=== PATIENT | male | born 1960 | race Caucasian/White ===

== ENCOUNTER 2016-08-31 16:05 | Emergency (ER) | payer OTHER ==
[~2016-08-31] VITALS: Ht 180.3 cm; Wt 88.5 kg
[2016-08-31 16:51] LABS: Basophils # (auto) 0 uL; Basophils % (auto) 0.4 % (0.0-2.0); Lymphocytes # (auto) 2.8 uL; Mean Corpuscular Volume 85.7 fL (80.0-100.0); Mean Platelet Volume 10.1 fL (7.4-10.4); Neutrophils # (auto) 5.1 uL; SUSPECT VIEW TRANSMISSION
[2016-08-31 16:59] LABS: Urine Bilirubin Negative (Negative); Urine Blood Negative /uL (Negative); Urine Color Yellow (Yellow); Urine Glucose Normal (Normal); Urine Ketone Negative (Negative); Urine Nitrite Negative (Negative); Urine RBC <1 /hpf (0 - 3); Urine pH 5.5 (5.0-8.0)
[2016-08-31 17:00] LABS: Eosinophils # (auto) 0.2 uL; Eosinophils % (auto) 2.5 % (0.0-7.0); Hematocrit 47.8 % (41.0-53.0); Lymphocytes % (auto) 31.4 % (10.0-50.0); Mean Corpuscular Hemoglobin 28.8 pg (28.0-32.0); Mean Corpuscular Hgb Conc. 33.6 g/dL (32.0-36.0); Monocytes # (auto) 0.7 uL; Neutrophils % (auto) 57.7 % (37.0-80.0); Platelet Count (auto) 214 10^3/uL (140-450); Red Cell Distribution Width 13.6 % (11.6-16.0); White Blood Cell 8.8 10^3/uL (4.4-10.8)
[2016-08-31 17:12] LABS: Albumin 3.9 g/dL (3.4-5.0); BUN/Creatinine Ratio 14.3; Calcium 8.7 mg/dL (8.5-10.1); Potassium 3.2 mmol/L (3.5-5.1)
[2016-08-31 17:14] LABS: Bilirubin, Total 0.4 mg/dL (0.2-1.0)
[2016-08-31] MEDS ORDERED: MORPHINE SULFATE 4 MG/ML SYRG IV ONE (22:45)
[2016-08-31] MEDS ORDERED: ONDANSETRON HCL 4 MG/2 ML VIAL IV ONE (22:45)
[2016-08-31 23:40] VITALS: BP 102/67
== END 2016-09-01 01:22 | disposition home or self-care (01) ==
LOC: ER 16:11
DX: K58.9 Irritable bowel syndrome, unspecified (principal); R10.31 Right lower quadrant pain; K59.00 Constipation, unspecified; E87.6 Hypokalemia; K21.9 Gastro-esophageal reflux disease without esophagitis; E78.5 Hyperlipidemia, unspecified; I10 Essential (primary) hypertension
CPT/HCPCS: 36415; 74176; 80053; 81001; 82150; 85025; 94761; 96374; 96375; 99285; J2270; J2405

== ENCOUNTER 2022-03-15 12:13 | Emergency (ER) | payer OTHER ==
[~2022-03-15] VITALS: Ht 154.9 cm; Wt 90.0 kg
[~2022-03-15 12:13] MED LIST: CIPR-173 PO; HYDR-4833 PO; LISI-716 PO; METR500T PO; OMEP20TA PO
[2022-03-15 12:54] LABS: Basophils # (auto) 0 10 ^3/uL (0-0.2); Basophils % (auto) 0.4 % (0.0-2.0); Eosinophils # (auto) 0 10 ^3/uL (0-0.8); Eosinophils % (auto) 0.2 % (0.0-7.0); Hemoglobin 16.5 g/dL (13.5-17.5); Lymphocytes % (auto) 12.1 % (10.0-50.0); Mean Corpuscular Hemoglobin 32.1 pg (28.0-32.0); Mean Corpuscular Hgb Conc. 34.4 g/dL (32.0-36.0); Mean Corpuscular Volume 93.4 fL (80.0-100.0); Monocytes # (auto) 0.4 10 ^3/uL (0-1.3); Monocytes % (auto) 5.4 % (0.0-12.0); Neutrophils # (auto) 6.7 10 ^3/uL (1.6-8.6); Neutrophils % (auto) 81.9 % (37.0-80.0); Nucleated Red Blood Cells % 0.1 %; Red Blood Cells 5.14 10^6/uL (4.5-5.90); Red Cell Distribution Width 15.7 % (11.8-14.3); White Blood Cell 8.1 10^3/uL (4.4-10.8)
[2022-03-15] MEDS ORDERED: NITROGLYCERIN 0.4 MG SL TAB SL ONE (13:00)
[2022-03-15 13:09] LABS: Albumin 3.5 g/dL (3.4-5.0); Calcium 8.2 mg/dL (8.5-10.1); Magnesium 1.2 mg/dL (1.6-2.6)
[2022-03-15 13:14] LABS: BUN/Creatinine Ratio 4.5; Total Protein 6.7 g/dL (6.4-8.2)
[2022-03-15] MEDS ORDERED: ONDANSETRON HCL 4 MG/2 ML VIAL IV ONE ×3 (13:15→20:30)
[2022-03-15] MEDS ORDERED: IOHEXOL 350 MG/ML 100ML IJ ONE (13:15)
[2022-03-15] MEDS ORDERED: HYDROmorphone HCL 2 MG/ML VL/or syr IV ONE (13:15)
[2022-03-15] MEDS ORDERED: LABETALOL HCL 5 MG/ML 4ML SYRINGE IV ONE (13:15)
[2022-03-15] MEDS ORDERED: MORPHINE SULFATE INJ 2 MG/ml SYRG IM ONE (17:45)
[2022-03-15] MEDS ORDERED: MORPHINE SULFATE INJ 2 MG/ml SYRG IV ONE (18:00)
[2022-03-15 18:25] LABS: Urine Bacteria NONE SEEN /hpf (None Seen); Urine Blood Negative /uL (Negative); Urine Mucus FEW (None Seen); Urine WBC <1 /hpf (0 - 3)
[2022-03-15 18:30] LABS: Urine Specific Gravity > 1.050 (1.001-1.035)
[2022-03-15] MEDS ORDERED: MORPHINE SULFATE 4 MG/ML SYR/VIAL IV ONE (20:30)
[2022-03-15 20:32] VITALS: BP 166/82
== END 2022-03-15 20:36 | disposition short-term general hospital (02) ==
LOC: ER 12:13
DX: K80.80 Other cholelithiasis without obstruction (principal); R07.89 Other chest pain; R74.01 Elevation of levels of liver transaminase levels; I10 Essential (primary) hypertension; E78.5 Hyperlipidemia, unspecified; Z90.49 Acquired absence of other specified parts of digestive tract
CPT/HCPCS: 36415; 71045; 71260; 74177; 76705; 80053; 81001; 83735; 84484; 85025; 93005; 96374; 96375; 96376; 99285; J1170; J2270; J2405; J3490; Q9967

== ENCOUNTER 2022-05-09 08:40 | Emergency (ER) | payer OTHER ==
[~2022-05-09] VITALS: Ht 180.3 cm; Wt 86.5 kg
[2022-05-09] MEDS ORDERED: PANTOPRAZOLE 40 MG/10 ML VIAL INJ IV ONE (09:00)
[2022-05-09] MEDS ORDERED: ONDANSETRON HCL 4 MG/2 ML VIAL IV ONE ×2 (09:00→17:45)
[2022-05-09] MEDS ORDERED: MORPHINE SULFATE 4 MG/ML SYR/VIAL IV ONE ×2 (09:00→17:45)
[2022-05-09 09:18] LABS: Basophils # (auto) 0.1 10 ^3/uL (0-0.2); Basophils % (auto) 0.8 % (0.0-2.0); Eosinophils # (auto) 0.1 10 ^3/uL (0-0.8); Eosinophils % (auto) 1.4 % (0.0-7.0); Hematocrit 48.2 % (41.0-53.0); Hemoglobin 17.1 g/dL (13.5-17.5); Lymphocytes # (auto) 2.4 10 ^3/uL (0.4-5.4); Mean Corpuscular Hgb Conc. 35.4 g/dL (32.0-36.0); Monocytes # (auto) 0.7 10 ^3/uL (0-1.3); Monocytes % (auto) 6.5 % (0.0-12.0); Neutrophils # (auto) 7.1 10 ^3/uL (1.6-8.6); Neutrophils % (auto) 68.3 % (37.0-80.0); Nucleated Red Blood Cells % 0.1 %; Red Blood Cells 5.02 10^6/uL (4.5-5.90); Red Cell Distribution Width 14.9 % (11.8-14.3); White Blood Cell 10.4 10^3/uL (4.4-10.8)
[2022-05-09 09:27] LABS: Albumin 3.6 g/dL (3.4-5.0); Anion Gap 13 (5-15); BUN/Creatinine Ratio 4.2; Blood Urea Nitrogen 4 mg/dL (7-18); Calcium 8.8 mg/dL (8.5-10.1); Carbon Dioxide 23 mmol/L (21-32); Chloride 101 mmol/L (98-107); GFR African American 102 mL/min; GFR Non-African American 84 mL/min; Glucose 126 mg/dL (74-106); Lipase 117 U/L (73-393); Magnesium 1.4 mg/dL (1.6-2.6); Potassium 3.4 mmol/L (3.5-5.1); Sodium 137 mmol/L (136-145)
[2022-05-09 09:35] LABS: INR 1.02 (0.9-1.15); Partial Thromboplastin Time 26.4 sec (24.6-33.4)
[2022-05-09 09:38] LABS: Alanine Aminotransferase 56 U/L (16-61); Alkaline Phosphatase 91 U/L (45-117); Aspartate Aminotransferase 70 U/L (15-37); Bilirubin, Total 1.5 mg/dL (0.2-1.0); Total Protein 7.4 g/dL (6.4-8.2)
[2022-05-09] MEDS ORDERED: ONDANSETRON HCL 4 MG/2 ML VIAL IV PRN (14:45)
[2022-05-09] MEDS ORDERED: ACETAMINOPHEN 325 MG TAB PO PRN (14:45)
[2022-05-09] MEDS ORDERED: HYDROcodone-ACET 5/325MG TAB PO PRN (14:45)
[2022-05-09] MEDS ORDERED: DOCUSATE SOD 100 MG CAP PO PRN (14:45)
[2022-05-09] MEDS ORDERED: SODIUM CHLORIDE 0.9% 1,000 ML IV SCH (14:45)
[2022-05-09] MEDS ORDERED: POTASSIUM EFFERVESENT TAB 25 MEQ PO ONE (14:45)
[2022-05-09] MEDS ORDERED: ASPirin 325 MG TAB PO ONE (14:45)
[2022-05-09 15:35] LABS: Cholesterol 149 mg/dL (< 200); HDL Cholesterol 44 mg/dL (40-59); LDL Cholesterol 89 mg/dL (< 100); Triglycerides 118 mg/dL (< 150)
[2022-05-09 22:33] VITALS: BP 188/90
[2022-05-09] MEDS ORDERED: LABETALOL HCL 5 MG/ML 4ML SYRINGE IV ONE (22:45)
[2022-05-10] MEDS ORDERED: ASPirin 81 mg TAB PO SCH (10:00)
[2022-05-10] MEDS ORDERED: PANTOPRAZOLE 40 MG/10 ML VIAL INJ IV SCH (10:00)
[2022-05-10] MEDS ORDERED: ENOXAPARIN SOD 40 MG/0.4 ML SYRINGE SC SCH (10:00)
== END 2022-05-09 23:45 | disposition short-term general hospital (02) ==
LOC: ER 08:40 → TELE 14:43 → UNDOADMIN 14:43 → UNDODISIN 23:45
DX: K83.8 Other specified diseases of biliary tract (principal); I10 Essential (primary) hypertension; K21.9 Gastro-esophageal reflux disease without esophagitis; K80.20 Calculus of gallbladder without cholecystitis without obstruction; F17.210 Nicotine dependence, cigarettes, uncomplicated; Z90.49 Acquired absence of other specified parts of digestive tract; Z20.822 Contact with and (suspected) exposure to COVID-19
CPT/HCPCS: 36415; 71045; 74176; 74181; 80053; 80061; 83036; 83690; 83735; 83880; 84132; 84443; 84484; 85025; 85379; 85610; 85730; 87426; 93005; 96374; 96375; 96376; 99285; C9113; J2270; J2405; J3490; G0378

== ENCOUNTER 2023-02-06 09:53 | Emergency (ER) | payer OTHER ==
[~2023-02-06] VITALS: Ht 180.3 cm; Wt 88.2 kg
[~2023-02-06 09:53] MED LIST changes: +AMLO1TAB23 PO; -LISI-716 PO; +LISI10TA34 PO; +METO25TA93 PO; +OMEP1CAP70 PO; +SUCR1SUS26 PO
[2023-02-06 10:53] LABS: Basophils # (auto) 0.1 10 ^3/uL (0-0.2); Basophils % (auto) 0.6 % (0.0-2.0); Eosinophils # (auto) 0.1 10 ^3/uL (0-0.8); Eosinophils % (auto) 1.4 % (0.0-7.0); Hematocrit 48.4 % (41.0-53.0); Hemoglobin 16.7 g/dL (13.5-17.5); Lymphocytes # (auto) 2.6 10 ^3/uL (0.4-5.4); Lymphocytes % (auto) 24.2 % (10.0-50.0); Mean Corpuscular Hemoglobin 33.3 pg (28.0-32.0); Mean Corpuscular Hgb Conc. 34.4 g/dL (32.0-36.0); Mean Corpuscular Volume 96.7 fL (80.0-100.0); Monocytes # (auto) 0.6 10 ^3/uL (0-1.3); Monocytes % (auto) 5.7 % (0.0-12.0); Neutrophils # (auto) 7.3 10 ^3/uL (1.6-8.6); Neutrophils % (auto) 68.1 % (37.0-80.0); Nucleated Red Blood Cells % 0.2 %; Red Blood Cells 5.01 10^6/uL (4.5-5.90); White Blood Cell 10.7 10^3/uL (4.4-10.8)
[2023-02-06 11:11] LABS: Albumin 3.1 g/dL (3.4-5.0); Calcium 9.1 mg/dL (8.5-10.1)
[2023-02-06 11:15] LABS: BUN/Creatinine Ratio 5.2 (10.0-20.0); Bilirubin, Total 1.4 mg/dL (0.2-1.0); Total Protein 7.7 g/dL (6.4-8.2)
[2023-02-06 11:17] LABS: Potassium 2.8 mmol/L (3.5-5.1)
[2023-02-06] MEDS ORDERED: POTASSIUM CHL 20 Meq TABLET PO ONE (11:30)
[2023-02-06 12:58] VITALS: BP 96/67; PULSE 65; RESP 16; TEMP 97.6; O2SAT 95
== END 2023-02-06 12:59 | disposition home or self-care (01) ==
LOC: ER 09:53
DX: K29.70 Gastritis, unspecified, without bleeding (principal); E87.6 Hypokalemia; K21.9 Gastro-esophageal reflux disease without esophagitis; I10 Essential (primary) hypertension; E78.5 Hyperlipidemia, unspecified; F17.210 Nicotine dependence, cigarettes, uncomplicated; Z90.49 Acquired absence of other specified parts of digestive tract; Z79.899 Other long term (current) drug therapy; Z90.89 Acquired absence of other organs
CPT/HCPCS: 36415; 76705; 80053; 83690; 85025; 93005

== ENCOUNTER 2023-06-08 21:43 | Inpatient (IN) | payer OTHER ==
[~2023-06-08] VITALS: Ht 180.3 cm; Wt 81.2 kg
[~2023-06-08 21:43] MED LIST changes: +ALBUAER3 IN; +BUDE1AER4 IN; +DILT-102 PO; +DOXY-448 PO; +FLE50T PO; +FURO1TAB33 PO; +POTA8TAB38 PO; +VANC125PO PO
[2023-06-08] MEDS ORDERED: ACETAMINOPHEN 325 MG TAB PO ONE (22:45)
[2023-06-08] MEDS ORDERED: ASPirin 81 mg TAB PO ONE (22:45)
[2023-06-08 23:16] LABS: Basophils # (auto) 0.1 10 ^3/uL (0-0.2); Lymphocytes # (auto) 3.1 10 ^3/uL (0.4-5.4)
[2023-06-08 23:17] LABS: Basophils % (auto) 0.8 % (0.0-2.0); Eosinophils # (auto) 0 10 ^3/uL (0-0.8); Eosinophils % (auto) 0.4 % (0.0-7.0); Hematocrit 37.3 % (41.0-53.0); Hemoglobin 12.7 g/dL (13.5-17.5); Lymphocytes % (auto) 27.6 % (10.0-50.0); Mean Corpuscular Hemoglobin 37.1 pg (28.0-32.0); Mean Corpuscular Hgb Conc. 34.1 g/dL (32.0-36.0); Mean Corpuscular Volume 108.8 fL (80.0-100.0); Monocytes # (auto) 0.9 10 ^3/uL (0-1.3); Monocytes % (auto) 8.3 % (0.0-12.0); Neutrophils % (auto) 62.9 % (37.0-80.0); Red Blood Cells 3.43 10^6/uL (4.5-5.90); White Blood Cell 11.2 10^3/uL (4.4-10.8)
[2023-06-08 23:31] LABS: Alanine Aminotransferase 44 U/L (7-40); Albumin 3.9 g/dL (3.2-4.8); Alkaline Phosphatase 94 U/L (46-116); Anion Gap 12 (5-15); Aspartate Aminotransferase 41 U/L (13-40); BUN/Creatinine Ratio 4.9 (10.0-20.0); Bilirubin, Total 0.9 mg/dL (0.2-1.0); Blood Alcohol 268.5 mg/dL (<10); Blood Urea Nitrogen < 5 mg/dL (9-23); Calcium 8.6 mg/dL (8.7-10.4); Carbon Dioxide 28 mmol/L (20-30); Chloride 93 mmol/L (98-107); Glucose 128 mg/dL (74-106); Magnesium 1.5 mg/dL (1.6-2.6); Potassium 2.7 mmol/L (3.5-5.1); Sodium 133 mmol/L (136-145); Total Protein 6.6 g/dL (5.7-8.2)
[2023-06-08 23:33] LABS: INR 1.04 (0.9-1.15); Partial Thromboplastin Time 26.9 SEC (24.5-34.5); Prothrombin Time 10.9 sec (9.3-11.8)
[2023-06-08 23:56] LABS: Lactic Acid w/Reflex 4.9 mmol/L (0.4-2.0)
[2023-06-09 01:21] LABS: Urine Bacteria NONE SEEN /hpf (None Seen); Urine Blood Negative /uL (Negative); Urine Clarity Clear (Clear); Urine Color Colorless (Yellow); Urine Protein, UAD Negative (Negative); Urine Specific Gravity 1.004 (1.001-1.035); Urine Urobilinogen Normal (Negative); Urine WBC 1 /hpf (0 - 3)
[2023-06-09 01:31] LABS: Amphetamine Screen, Urine Neg (NEGATIVE); Barbiturate Scree,Urine Neg (NEGATIVE); Benzodiazephine Screen, Urine Neg (NEGATIVE); Cannabinoid Screen, Urine Neg (NEGATIVE); Cocaine Screen, Urine Neg (NEGATIVE); Opiate Scree,Urine Neg (NEGATIVE); Phencyclidine Screen, Urine Neg (NEGATIVE)
[2023-06-09] MEDS ORDERED: SODIUM CHLORIDE 0.9% 1,000 ML IV ONE ×2 (01:45→07:30)
[2023-06-09] MEDS ORDERED: VANCOMYCIN 1GM/250ML 250 ML IV SCH ×2 (03:15→10:00)
[2023-06-09] MEDS: PIPERACILLIN-TAZOB 3.375GM 100 ML IV SCH ×4 (06:32→23:40)
[2023-06-09 07:14] LABS: Lactic Acid w/Reflex 4.1 mmol/L (0.4-2.0)
[2023-06-09] MEDS ORDERED: ACETAMINOPHEN 325 MG TAB PO PRN (07:30)
[2023-06-09] MEDS ORDERED: POTASSIUM CHL 20 Meq TABLET PO ONE (07:30)
[2023-06-09] MEDS ORDERED: cefTRIAXone 1GM/50ML D5W 50 ML IV SCH (09:00)
[2023-06-09] MEDS: dilTIAZem HCL 180MG ER CAP PO SCH (09:49)
[2023-06-09] MEDS: MAGNESIUM SULFATE 1GM/100ML 100 ML IV SCH ×2 (09:49→11:07)
[2023-06-09] MEDS: ENOXAPARIN SOD 40 MG/0.4 ML SYRINGE SC SCH (09:49)
[2023-06-09] MEDS: ASPirin 81 mg TAB PO SCH (09:50)
[2023-06-09] MEDS ORDERED: FUROSEMIDE 40 MG TAB PO SCH (10:00)
[2023-06-09] MEDS: VANCOMYCIN HCL 125MG/5ML ORAL SOL PO SCH ×3 (12:12→21:35)
[2023-06-09 14:39] LABS: Alanine Aminotransferase 38 U/L (7-40); Albumin 3.6 g/dL (3.2-4.8); Alkaline Phosphatase 94 U/L (46-116); Anion Gap 7 (5-15); Aspartate Aminotransferase 43 U/L (13-40); Bilirubin, Total 1.4 mg/dL (0.2-1.0); Calcium 8.1 mg/dL (8.7-10.4); Carbon Dioxide 27 mmol/L (20-30); Chloride 100 mmol/L (98-107); Glucose 115 mg/dL (74-106); Magnesium 2.1 mg/dL (1.6-2.6); Potassium 3.3 mmol/L (3.5-5.1); Sodium 134 mmol/L (136-145)
[2023-06-09 14:52] LABS: BUN/Creatinine Ratio 6.1 (10.0-20.0); Blood Urea Nitrogen < 5 mg/dL (9-23)
[2023-06-09 15:19] LABS: Basophils # (auto) 0.1 10 ^3/uL (0-0.2); Eosinophils # (auto) 0 10 ^3/uL (0-0.8); Eosinophils % (auto) 0.3 % (0.0-7.0); Hemoglobin 12.2 g/dL (13.5-17.5); White Blood Cell 10.2 10^3/uL (4.4-10.8)
[2023-06-09 15:21] LABS: Basophils % (auto) 1.3 % (0.0-2.0); Hematocrit 35.3 % (41.0-53.0); Lymphocytes # (auto) 1.4 10 ^3/uL (0.4-5.4); Lymphocytes % (auto) 13.3 % (10.0-50.0); Mean Corpuscular Hemoglobin 37.4 pg (28.0-32.0); Mean Corpuscular Hgb Conc. 34.5 g/dL (32.0-36.0); Mean Corpuscular Volume 108.3 fL (80.0-100.0); Monocytes % (auto) 9.4 % (0.0-12.0); Neutrophils # (auto) 7.7 10 ^3/uL (1.6-8.6); Neutrophils % (auto) 75.7 % (37.0-80.0); Nucleated Red Blood Cells % 0.1 %; Red Blood Cells 3.26 10^6/uL (4.5-5.90); Red Cell Distribution Width 18.6 % (11.8-14.3)
[2023-06-09] MEDS: ONDANSETRON HCL 4 MG/2 ML VIAL IV PRN (16:18)
[2023-06-09 23:27] VITALS: BP 112/75; PULSE 95; TEMP 97.9
[2023-06-09 23:28] VITALS: BP 136/83; PULSE 105; RESP 20; TEMP 98.1; O2SAT 97
[2023-06-10] MEDS: ONDANSETRON HCL 4 MG/2 ML VIAL IV PRN (04:36)
[2023-06-10 05:00] VITALS: BP 129/90; PULSE 101; RESP 18; TEMP 98.6; O2SAT 95
[2023-06-10] MEDS: PIPERACILLIN-TAZOB 3.375GM 100 ML IV SCH (05:58)
[2023-06-10] MEDS: VANCOMYCIN HCL 125MG/5ML ORAL SOL PO SCH ×4 (05:58→21:20)
[2023-06-10 07:11] LABS: Alanine Aminotransferase 31 U/L (7-40); Albumin 3.5 g/dL (3.2-4.8); Alkaline Phosphatase 95 U/L (46-116); Anion Gap 7 (5-15); Aspartate Aminotransferase 30 U/L (13-40); BUN/Creatinine Ratio 6.7 (10.0-20.0); Blood Urea Nitrogen 6 mg/dL (9-23); Calcium 8.5 mg/dL (8.7-10.4); Carbon Dioxide 30 mmol/L (20-30); Chloride 98 mmol/L (98-107); Glucose 86 mg/dL (74-106); Potassium 3.1 mmol/L (3.5-5.1); Sodium 135 mmol/L (136-145)
[2023-06-10 07:12] LABS: Bilirubin, Total 1.1 mg/dL (0.2-1.0); Total Protein 5.9 g/dL (5.7-8.2)
[2023-06-10 07:21] LABS: Basophils # (auto) 0 10 ^3/uL (0-0.2); Basophils % (auto) 0.6 % (0.0-2.0); Eosinophils # (auto) 0.1 10 ^3/uL (0-0.8); Hemoglobin 11.4 g/dL (13.5-17.5); Lymphocytes # (auto) 1.6 10 ^3/uL (0.4-5.4); Neutrophils # (auto) 4.5 10 ^3/uL (1.6-8.6); Nucleated Red Blood Cells % 0.2 %; White Blood Cell 6.9 10^3/uL (4.4-10.8)
[2023-06-10 07:27] LABS: Eosinophils % (auto) 1.3 % (0.0-7.0); Hematocrit 33.6 % (41.0-53.0); Lymphocytes % (auto) 23.1 % (10.0-50.0); Mean Corpuscular Hemoglobin 37.3 pg (28.0-32.0); Mean Corpuscular Volume 109.5 fL (80.0-100.0); Monocytes # (auto) 0.7 10 ^3/uL (0-1.3); Monocytes % (auto) 9.4 % (0.0-12.0); Neutrophils % (auto) 65.6 % (37.0-80.0); Red Blood Cells 3.07 10^6/uL (4.5-5.90); Red Cell Distribution Width 19.1 % (11.8-14.3)
[2023-06-10 08:00] VITALS: PULSE 105
[2023-06-10 09:17] VITALS: BP 128/88; PULSE 118; RESP 22; TEMP 97.7; O2SAT 95
[2023-06-10] MEDS ORDERED: POTASSIUM CHL 20 Meq TABLET PO ONE (09:30)
[2023-06-10] MEDS ORDERED: PANTOPRAZOLE 40 MG TAB PO ONE (10:15)
[2023-06-10] MEDS: ENOXAPARIN SOD 40 MG/0.4 ML SYRINGE SC SCH (10:43)
[2023-06-10] MEDS: dilTIAZem HCL 180MG ER CAP PO SCH (10:44)
[2023-06-10] MEDS: ASPirin 81 mg TAB PO SCH (10:44)
[2023-06-10 13:29] VITALS: BP 129/45; PULSE 116; RESP 21; TEMP 97.6; O2SAT 94
[2023-06-10] MEDS: chlorproMAZINE HCL 25 MG TAB PO PRN (14:45)
[2023-06-10 20:00] VITALS: PULSE 97
[2023-06-10] MEDS: FLECAINIDE ACETATE 50 MG TAB PO SCH (21:21)
[2023-06-10] MEDS: ATORVASTATIN 20 MG TAB PO SCH (21:21)
[2023-06-10 22:00] VITALS: BP 106/64; PULSE 92; RESP 19; TEMP 98.6; O2SAT 96
[2023-06-11 05:00] VITALS: BP 117/72; PULSE 98; RESP 19; TEMP 97.8; O2SAT 93
[2023-06-11] MEDS: VANCOMYCIN HCL 125MG/5ML ORAL SOL PO SCH ×4 (05:08→21:39)
[2023-06-11 06:08] LABS: Basophils # (auto) 0 10 ^3/uL (0-0.2); Eosinophils # (auto) 0.1 10 ^3/uL (0-0.8); Hemoglobin 11.2 g/dL (13.5-17.5); Lymphocytes # (auto) 1.9 10 ^3/uL (0.4-5.4); Mean Corpuscular Hgb Conc. 34.2 g/dL (32.0-36.0); Monocytes # (auto) 0.5 10 ^3/uL (0-1.3); Nucleated Red Blood Cells % 0.1 %
[2023-06-11 06:10] LABS: Basophils % (auto) 0.6 % (0.0-2.0); Eosinophils % (auto) 1.3 % (0.0-7.0); Hematocrit 32.8 % (41.0-53.0); Lymphocytes % (auto) 29.1 % (10.0-50.0); Mean Corpuscular Hemoglobin 37.2 pg (28.0-32.0); Mean Corpuscular Volume 108.9 fL (80.0-100.0); Monocytes % (auto) 8.1 % (0.0-12.0); Neutrophils # (auto) 3.9 10 ^3/uL (1.6-8.6); Neutrophils % (auto) 60.9 % (37.0-80.0); Red Blood Cells 3.01 10^6/uL (4.5-5.90); Red Cell Distribution Width 19.2 % (11.8-14.3); White Blood Cell 6.5 10^3/uL (4.4-10.8)
[2023-06-11 06:28] LABS: Alanine Aminotransferase 28 U/L (7-40); Albumin 3.4 g/dL (3.2-4.8); Alkaline Phosphatase 97 U/L (46-116); Anion Gap 8 (5-15); Aspartate Aminotransferase 36 U/L (13-40); BUN/Creatinine Ratio 7.1 (10.0-20.0); Blood Urea Nitrogen 6 mg/dL (9-23); Calcium 8.6 mg/dL (8.7-10.4); Carbon Dioxide 30 mmol/L (20-30); Chloride 100 mmol/L (98-107); Glucose 88 mg/dL (74-106); Magnesium 1.9 mg/dL (1.6-2.6); Potassium 3.1 mmol/L (3.5-5.1); Sodium 138 mmol/L (136-145)
[2023-06-11 06:29] LABS: Bilirubin, Total 0.6 mg/dL (0.2-1.0); Total Protein 5.7 g/dL (5.7-8.2)
[2023-06-11 08:00] VITALS: PULSE 105
[2023-06-11] MEDS ORDERED: POTASSIUM CHL 20 Meq TABLET PO ONE (08:15)
[2023-06-11] MEDS: ENOXAPARIN SOD 40 MG/0.4 ML SYRINGE SC SCH (08:43)
[2023-06-11] MEDS: PANTOPRAZOLE 40 MG TAB PO SCH (08:44)
[2023-06-11] MEDS: FLECAINIDE ACETATE 50 MG TAB PO SCH (08:44)
[2023-06-11] MEDS: ASPirin 81 mg TAB PO SCH (08:44)
[2023-06-11] MEDS: dilTIAZem HCL 180MG ER CAP PO SCH (08:45)
[2023-06-11 09:59] VITALS: BP 126/78; PULSE 103; RESP 21; TEMP 98.2; O2SAT 96
[2023-06-11 12:52] VITALS: BP 125/73; PULSE 92; RESP 19; TEMP 98.2; O2SAT 97
[2023-06-11 20:00] VITALS: BP 111/80; PULSE 107; PULSE 108; RESP 18; TEMP 98.2
[2023-06-11] MEDS: ATORVASTATIN 20 MG TAB PO SCH (21:37)
[2023-06-11 22:00] VITALS: BP 111/80; PULSE 108; RESP 18; O2SAT 94
[2023-06-12] VITALS (7 sets, daily range): BP systolic 107–137; BP diastolic 64–99; PULSE 78–105; RESP 17–18; TEMP 97.5–98.1; O2SAT 91–98
[2023-06-12] MEDS: FLECAINIDE ACETATE 50 MG TAB PO SCH ×3 (02:02→21:10)
[2023-06-12 05:51] LABS: Chloride 101 mmol/L (98-107); Potassium 3.6 mmol/L (3.5-5.1); Sodium 135 mmol/L (136-145)
[2023-06-12 05:52] LABS: Anion Gap 6 (5-15); Calcium 8.7 mg/dL (8.7-10.4); Carbon Dioxide 28 mmol/L (20-30)
[2023-06-12 05:57] LABS: Glucose 94 mg/dL (74-106)
[2023-06-12 06:25] LABS: BUN/Creatinine Ratio 4.8 (10.0-20.0); Blood Urea Nitrogen < 5 mg/dL (9-23)
[2023-06-12] MEDS: VANCOMYCIN HCL 125MG/5ML ORAL SOL PO SCH ×4 (06:33→21:12)
[2023-06-12] MEDS: ENOXAPARIN SOD 40 MG/0.4 ML SYRINGE SC SCH (09:30)
[2023-06-12] MEDS: dilTIAZem HCL 180MG ER CAP PO SCH (09:31)
[2023-06-12] MEDS: PANTOPRAZOLE 40 MG TAB PO SCH (09:31)
[2023-06-12] MEDS: ASPirin 81 mg TAB PO SCH (09:31)
[2023-06-12] MEDS: chlorproMAZINE HCL 25 MG TAB PO PRN (17:27)
[2023-06-12] MEDS: ATORVASTATIN 20 MG TAB PO SCH (21:10)
[2023-06-13 05:00] VITALS: BP 131/85; PULSE 86; RESP 18; TEMP 97.8; O2SAT 94
[2023-06-13] MEDS: VANCOMYCIN HCL 125MG/5ML ORAL SOL PO SCH ×2 (05:20→11:08)
[2023-06-13 05:54] LABS: Chloride 103 mmol/L (98-107); Potassium 3.9 mmol/L (3.5-5.1); Sodium 139 mmol/L (136-145)
[2023-06-13 05:55] LABS: Anion Gap 9 (5-15); Calcium 9.4 mg/dL (8.5-10.1); Carbon Dioxide 27 mmol/L (20-30)
[2023-06-13 06:00] LABS: BUN/Creatinine Ratio 7.4 (10.0-20.0); Blood Urea Nitrogen 8 mg/dL (9-23); Glucose 99 mg/dL (74-106)
[2023-06-13 08:00] VITALS: PULSE 99
[2023-06-13 09:00] VITALS: BP 144/87; PULSE 106; RESP 19; TEMP 98.3; O2SAT 95
[2023-06-13] MEDS: ENOXAPARIN SOD 40 MG/0.4 ML SYRINGE SC SCH (11:05)
[2023-06-13] MEDS: FLECAINIDE ACETATE 50 MG TAB PO SCH (11:05)
[2023-06-13] MEDS: ASPirin 81 mg TAB PO SCH (11:05)
[2023-06-13] MEDS: PANTOPRAZOLE 40 MG TAB PO SCH (11:05)
[2023-06-13] MEDS: dilTIAZem HCL 180MG ER CAP PO SCH (11:05)
[2023-06-13] MEDS ORDERED: VANC125C3 PO (11:52)
[2023-06-13] MEDS ORDERED: CHLO1TAB37 PO (11:54)
== END 2023-06-13 15:10 | disposition home or self-care (01) | DRG 248 ==
LOC: EDBD 21:43 → ER 21:43 → EDUNIT# 06-09 07:28 → OVERFLOW 06-09 07:28 → CENTRAL 06-09 22:16 → TELE-CENTR 06-10 19:37
PROVIDERS: ADMIT Nurse Practitioner; ATTEND Internal Medicine Geriatric Medicine
DX: A04.71 Enterocolitis due to Clostridium difficile, recurrent (principal); N17.9 Acute kidney failure, unspecified; E87.8 Other disorders of electrolyte and fluid balance, not elsewhere classified; F10.10 Alcohol abuse, uncomplicated; I48.91 Unspecified atrial fibrillation; E66.9 Obesity, unspecified; E87.6 Hypokalemia; J44.9 Chronic obstructive pulmonary disease, unspecified; I10 Essential (primary) hypertension; Z68.25 Body mass index [BMI] 25.0-25.9, adult; Z72.0 Tobacco use
CPT/HCPCS: 36415; 71045; 80048; 80053; 80307; 80320; 81001; 82553; 83605; 83735; 83880; 84443; 84484; 85007; 85025; 85027; 85379; 85610; 85730; 86850; 86900; 86901; 87040; 87493; 93005; G0378; J0696; J2405; J2543; Q0161

== ENCOUNTER 2024-01-03 11:34 | Inpatient (IN) | payer MEDICARE, OTHER ==
[~2024-01-03] VITALS: Ht 182.9 cm; Wt 89.0 kg
[~2024-01-03 11:34] MED LIST changes: +CHLO1TAB37 PO; -DOXY-448 PO; +VANC125C3 PO; -VANC125PO PO
[2024-01-03 11:41] VITALS: PULSE 120; RESP 12; O2SAT 97
[2024-01-03 12:08] LABS: Basophils # (auto) 0.1 10 ^3/uL (0-0.2); Eosinophils # (auto) 0.3 10 ^3/uL (0-0.8); Lymphocytes # (auto) 1.4 10 ^3/uL (0.4-5.4); Lymphocytes % (auto) 15.1 % (10.0-50.0); Monocytes # (auto) 0.7 10 ^3/uL (0-1.3); Nucleated Red Blood Cells % 0.1 %
[2024-01-03 12:10] LABS: Basophils % (auto) 0.6 % (0.0-2.0); Eosinophils % (auto) 3.2 % (0.0-7.0); Hematocrit 41.1 % (41.0-53.0); Hemoglobin 14.9 g/dL (13.5-17.5); Mean Corpuscular Hemoglobin 35.5 pg (28.0-32.0); Mean Corpuscular Hgb Conc. 36.3 g/dL (32.0-36.0); Mean Corpuscular Volume 97.7 fL (80.0-100.0); Monocytes % (auto) 7.4 % (0.0-12.0); Neutrophils # (auto) 6.8 10 ^3/uL (1.6-8.6); Neutrophils % (auto) 73.7 % (37.0-80.0); Red Blood Cells 4.21 10^6/uL (4.5-5.90); Red Cell Distribution Width 15.3 % (11.8-14.3); White Blood Cell 9.2 10^3/uL (4.4-10.8)
[2024-01-03 12:22] LABS: INR 1.22 (0.9-1.15); Partial Thromboplastin Time 27.7 SEC (24.5-34.5); Prothrombin Time 12.7 sec (9.3-11.8)
[2024-01-03 12:28] LABS: Alanine Aminotransferase 24 U/L (7-40); Albumin 3.7 g/dL (3.2-4.8); Alkaline Phosphatase 67 U/L (46-116); Anion Gap 13 (5-15); Aspartate Aminotransferase 74 U/L (13-40); BUN/Creatinine Ratio 8.5 (10.0-20.0); Blood Urea Nitrogen 12 mg/dL (9-23); Calcium 6.5 mg/dL (8.5-10.1); Carbon Dioxide 32 mmol/L (20-30); Chloride 92 mmol/L (98-107); Glucose 104 mg/dL (74-106); Sodium 137 mmol/L (136-145)
[2024-01-03 12:29] LABS: Bilirubin, Total 1.7 mg/dL (0.2-1.0)
[2024-01-03 13:00] LABS: Lactic Acid w/Reflex 5.2 mmol/L (0.4-2.0); Potassium 1.7 mmol/L (3.5-5.1)
[2024-01-03] MEDS: PIPERACILLIN-TAZOB 3.375GM 100 ML IV ONE (14:31)
[2024-01-03] MEDS: SODIUM CHLORIDE 0.9% 250 ML IV ONE (14:31)
[2024-01-03] MEDS: POTASSIUM CHL 20MEQ/100ML 100 ML IV SCH ×2 (15:38→21:11)
[2024-01-03] MEDS: POTASSIUM EFFERVESENT TAB 25 MEQ PO ONE (15:38)
[2024-01-03 17:25] LABS: Urine Bacteria FEW /hpf (None Seen); Urine Blood 2+ /uL (Negative); Urine Clarity Clear (Clear); Urine Color Light-Yellow (Yellow); Urine Protein, UAD Negative (Negative); Urine Specific Gravity 1.005 (1.001-1.035); Urine Urobilinogen Normal (Negative); Urine WBC 1 /hpf (0 - 3)
[2024-01-03 17:29] LABS: Amphetamine Screen, Urine Neg (NEGATIVE); Barbiturate Scree,Urine Neg (NEGATIVE); Benzodiazephine Screen, Urine Neg (NEGATIVE); Cannabinoid Screen, Urine Neg (NEGATIVE); Cocaine Screen, Urine Neg (NEGATIVE); Opiate Scree,Urine Neg (NEGATIVE); Phencyclidine Screen, Urine Neg (NEGATIVE)
[2024-01-03] MEDS ORDERED: ACETAMINOPHEN 325 MG TAB PO PRN ×2 (17:30→17:45)
[2024-01-03] MEDS ORDERED: NITROGLYCERIN 0.4 MG SL TAB SL PRN ×2 (17:30→17:45)
[2024-01-03] MEDS ORDERED: MORPHINE SULFATE INJ 2 MG/ml SYRG IV PRN ×2 (17:30→17:45)
[2024-01-03] MEDS ORDERED: HYDROcodone-ACET 5/325MG TAB PO PRN (17:30)
[2024-01-03] MEDS ORDERED: chlorproMAZINE HCL 25 MG TAB PO PRN (17:30)
[2024-01-03 19:30] VITALS: PULSE 96; RESP 16; O2SAT 97
[2024-01-03 21:53] VITALS: PULSE 69; RESP 18; O2SAT 98
[2024-01-03] MEDS ORDERED: FLECAINIDE ACETATE 50 MG TAB PO SCH (22:00)
[2024-01-03] MEDS: FLECAINIDE ACETATE 50 MG TAB PO SCH (22:39)
[2024-01-04] VITALS (7 sets, daily range): BP systolic 105–136; BP diastolic 53–73; PULSE 65–89; RESP 17–20; TEMP 97.2–98.6; O2SAT 97–100
[2024-01-04] MEDS ORDERED: DAPA1TAB4 PO (01:05)
[2024-01-04] MEDS ORDERED: [UNRECOGNIZED DRUG - CODE] PO (01:05)
[2024-01-04] MEDS ORDERED: SACU1TAB7 PO (01:05)
[2024-01-04] MEDS: HYDROcodone-ACET 5/325MG TAB PO PRN (01:41)
[2024-01-04] MEDS: FAMOTIDINE (10MG/ML) 2ML VL IV ONE (01:54)
[2024-01-04] MEDS: POTASSIUM CHL 20MEQ/100ML 100 ML IV SCH (03:19)
[2024-01-04] MEDS: POTASSIUM CHL 20 Meq TABLET PO ONE ×2 (04:12→22:15)
[2024-01-04 05:49] LABS: Basophils # (auto) 0 10 ^3/uL (0-0.2); Eosinophils # (auto) 0.3 10 ^3/uL (0-0.8); Mean Corpuscular Hemoglobin 35.3 pg (28.0-32.0); Monocytes # (auto) 0.5 10 ^3/uL (0-1.3); Neutrophils # (auto) 4.7 10 ^3/uL (1.6-8.6); Nucleated Red Blood Cells % 0.3 %
[2024-01-04 05:54] LABS: Basophils % (auto) 0.6 % (0.0-2.0); Eosinophils % (auto) 4.7 % (0.0-7.0); Hematocrit 36.1 % (41.0-53.0); Lymphocytes # (auto) 1.6 10 ^3/uL (0.4-5.4); Lymphocytes % (auto) 22.3 % (10.0-50.0); Neutrophils % (auto) 65.4 % (37.0-80.0); Red Blood Cells 3.68 10^6/uL (4.5-5.90); Red Cell Distribution Width 15.3 % (11.8-14.3); White Blood Cell 7.1 10^3/uL (4.4-10.8)
[2024-01-04 06:09] LABS: Alanine Aminotransferase 19 U/L (7-40); Alkaline Phosphatase 57 U/L (46-116); Anion Gap 9 (5-15); Aspartate Aminotransferase 63 U/L (13-40); BUN/Creatinine Ratio 6.5 (10.0-20.0); Bilirubin, Total 1.3 mg/dL (0.2-1.0); Blood Urea Nitrogen 7 mg/dL (9-23); Calcium 6.1 mg/dL (8.5-10.1); Carbon Dioxide 32 mmol/L (20-30); Chloride 99 mmol/L (98-107); Glucose 88 mg/dL (74-106); Sodium 140 mmol/L (136-145); Total Protein 5.5 g/dL (5.7-8.2)
[2024-01-04 06:12] LABS: Albumin 3.3 g/dL (3.2-4.8)
[2024-01-04 06:29] LABS: Potassium 1.5 mmol/L (3.5-5.1)
[2024-01-04] MEDS: PANTOPRAZOLE 40 MG/10 ML VIAL INJ IV ONE (09:00)
[2024-01-04] MEDS: POTASSIUM CHLORIDE 20 MEQ, LIDOCAINE 1% (LOCAL ANESTH.) 2 ML in SODIUM CHL 0.9% 100 ML IV ONE (09:28)
[2024-01-04] MEDS: SUCRALFATE 1 GM/10 ML ORAL SUSP PO SCH (09:28)
[2024-01-04] MEDS: LISINOPRIL 5 MG TAB PO SCH (09:29)
[2024-01-04] MEDS: amLODIPine BESYLATE 5 MG TAB PO SCH (09:29)
[2024-01-04] MEDS: PANTOPRAZOLE 40 MG TAB PO SCH (09:30)
[2024-01-04] MEDS: POTASSIUM CHLORIDE 8 MEQ TAB PO SCH (09:31)
[2024-01-04] MEDS: PANTOPRAZOLE 40 MG/10 ML VIAL INJ IV SCH (09:31)
[2024-01-04] MEDS: ENOXAPARIN SOD 40 MG/0.4 ML SYRINGE SC SCH (09:34)
[2024-01-04] MEDS ORDERED: SUCRALFATE 1 GM/10 ML ORAL SUSP PO SCH (10:00)
[2024-01-04] MEDS ORDERED: POTASSIUM CHLORIDE 8 MEQ TAB PO SCH (10:00)
[2024-01-04] MEDS ORDERED: PATIENTS OWN MEDICATION (Lisinopril 10 MG) PO SCH (10:00)
[2024-01-04] MEDS ORDERED: PATIENTS OWN MEDICATION (Amlodipine Besylate 1 TAB) PO SCH (10:00)
[2024-01-04] MEDS ORDERED: ENOXAPARIN SOD 40 MG/0.4 ML SYRINGE SC SCH (10:00)
[2024-01-04] MEDS ORDERED: PATIENTS OWN MEDICATION (Omeprazole (Omeprazole Dr) 1 CAP) PO SCH (10:00)
[2024-01-04] MEDS ORDERED: dilTIAZem HCL 180MG ER CAP PO SCH (10:00)
[2024-01-04] MEDS ORDERED: METO1TAB77 PO (11:22)
[2024-01-04] MEDS ORDERED: BACL10TA PO (11:22)
[2024-01-04] MEDS: MAGNESIUM SULFATE 1GM/100ML 100 ML IV SCH (11:43)
[2024-01-04] MEDS: SOD CHL 0.9%/ KCL 40MEQ 1,000 ML IV SCH (11:44)
[2024-01-04] MEDS: POTASSIUM CHLORIDE 60 MEQ, LIDOCAINE 1% (LOCAL ANESTH.) 6 ML in SODIUM CHL 0.9% 500 ML IV ONE (12:28)
[2024-01-04 14:37] LABS: Chloride 100 mmol/L (98-107); Sodium 142 mmol/L (136-145)
[2024-01-04 14:41] LABS: Calcium 6.1 mg/dL (8.5-10.1)
[2024-01-04 14:46] LABS: BUN/Creatinine Ratio 6.9 (10.0-20.0); Blood Urea Nitrogen 7 mg/dL (9-23); Glucose 112 mg/dL (74-106)
[2024-01-04 14:57] LABS: Potassium 1.7 mmol/L (3.5-5.1)
[2024-01-04 15:38] LABS: Anion Gap 8 (5-15); Carbon Dioxide 34 mmol/L (20-30)
[2024-01-04 20:35] LABS: Chloride 102 mmol/L (98-107); Sodium 143 mmol/L (136-145)
[2024-01-04 20:36] LABS: Anion Gap 9 (5-15); Carbon Dioxide 32 mmol/L (20-30)
[2024-01-04 20:37] LABS: Calcium 6.2 mg/dL (8.5-10.1)
[2024-01-04 20:42] LABS: BUN/Creatinine Ratio 5.9 (10.0-20.0); Blood Urea Nitrogen 6 mg/dL (9-23); Glucose 116 mg/dL (74-106)
[2024-01-04] MEDS: POTASSIUM CHL 20 Meq TABLET PO NR (22:51)
[2024-01-05] VITALS (8 sets, daily range): BP systolic 125–145; BP diastolic 62–84; PULSE 77–101; RESP 18–20; TEMP 97.7–98.1; O2SAT 90–98
[2024-01-05 00:54] LABS: Chloride 103 mmol/L (98-107); Sodium 140 mmol/L (136-145)
[2024-01-05 00:55] LABS: Anion Gap 7 (5-15); Carbon Dioxide 30 mmol/L (20-30)
[2024-01-05 00:56] LABS: Calcium 6.3 mg/dL (8.7-10.4)
[2024-01-05 01:00] LABS: BUN/Creatinine Ratio 6.5 (10.0-20.0); Blood Urea Nitrogen 6 mg/dL (9-23); Glucose 107 mg/dL (74-106)
[2024-01-05 01:04] LABS: Potassium 2.1 mmol/L (3.5-5.1)
[2024-01-05] MEDS: POTASSIUM CHL 20 Meq TABLET PO ONE (02:45)
[2024-01-05] MEDS: POTASSIUM CHL 20 Meq TABLET PO SCH (03:40)
[2024-01-05 07:32] LABS: Basophils # (auto) 0 10 ^3/uL (0-0.2); Eosinophils # (auto) 0.3 10 ^3/uL (0-0.8); Eosinophils % (auto) 3.2 % (0.0-7.0); Hemoglobin 14.2 g/dL (13.5-17.5); Monocytes # (auto) 0.5 10 ^3/uL (0-1.3); Monocytes % (auto) 5.9 % (0.0-12.0); White Blood Cell 8.1 10^3/uL (4.4-10.8)
[2024-01-05 07:34] LABS: Basophils % (auto) 0.5 % (0.0-2.0); Hematocrit 40.3 % (41.0-53.0); Lymphocytes # (auto) 1.3 10 ^3/uL (0.4-5.4); Mean Corpuscular Hemoglobin 35.1 pg (28.0-32.0); Mean Corpuscular Hgb Conc. 35.2 g/dL (32.0-36.0); Mean Corpuscular Volume 99.9 fL (80.0-100.0); Neutrophils % (auto) 74.4 % (37.0-80.0); Red Blood Cells 4.03 10^6/uL (4.5-5.90); Red Cell Distribution Width 15.6 % (11.8-14.3)
[2024-01-05 07:52] LABS: Alanine Aminotransferase 21 U/L (7-40); Albumin 3.5 g/dL (3.2-4.8); Alkaline Phosphatase 61 U/L (46-116); Anion Gap 8 (5-15); Aspartate Aminotransferase 74 U/L (13-40); Calcium 6.1 mg/dL (8.5-10.1); Carbon Dioxide 29 mmol/L (20-30); Chloride 104 mmol/L (98-107); Glucose 104 mg/dL (74-106); Magnesium 1.5 mg/dL (1.6-2.6); Sodium 141 mmol/L (136-145); Total Protein 5.9 g/dL (5.7-8.2)
[2024-01-05 07:59] LABS: BUN/Creatinine Ratio 5.6 (10.0-20.0); Blood Urea Nitrogen < 5 mg/dL (9-23)
[2024-01-05 08:01] LABS: Potassium 2.4 mmol/L (3.5-5.1)
[2024-01-05] MEDS ORDERED: POTASSIUM EFFERVESENT TAB 25 MEQ GT SCH (10:00)
[2024-01-05] MEDS: MAGNESIUM SULFATE 1GM/100ML 100 ML IV SCH (10:48)
[2024-01-05] MEDS: CALCIUM GLUC 1,000mg/50ml-NS 50 ML IV ONE (12:41)
[2024-01-05] MEDS: POTASSIUM CHL 20MEQ/100ML 100 ML IV SCH (14:53)
[2024-01-05] MEDS: chlorproMAZINE HCL 25 MG TAB PO PRN (15:42)
[2024-01-05] MEDS: VANCOMYCIN HCL 125 MG CAP PO ONE (16:45)
[2024-01-05] MEDS: BACLOFEN 10 MG TAB PO ONE (16:46)
[2024-01-05] MEDS: VANCOMYCIN HCL 125 MG CAP PO SCH (18:43)
[2024-01-05 19:50] LABS: Chloride 103 mmol/L (98-107); Sodium 140 mmol/L (136-145)
[2024-01-05 19:51] LABS: Anion Gap 8 (5-15); Calcium 6.3 mg/dL (8.5-10.1); Carbon Dioxide 29 mmol/L (20-30)
[2024-01-05 19:56] LABS: Glucose 119 mg/dL (74-106)
[2024-01-05 20:00] LABS: Blood Urea Nitrogen < 5 mg/dL (9-23)
[2024-01-05] MEDS: BACLOFEN 10 MG TAB PO SCH (21:35)
[2024-01-05] MEDS ORDERED: POTASSIUM EFFERVESENT TAB 25 MEQ PO ONE (22:15)
[2024-01-05] MEDS: POTASSIUM EFFERVESENT TAB 25 MEQ PO SCH (22:39)
[2024-01-06] VITALS (8 sets, daily range): BP systolic 117–138; BP diastolic 63–91; PULSE 84–104; RESP 18–19; TEMP 97.2–98.3; O2SAT 92–99
[2024-01-06 05:56] LABS: Anion Gap 6 (5-15); Carbon Dioxide 29 mmol/L (20-30); Chloride 103 mmol/L (98-107); Potassium 2.6 mmol/L (3.5-5.1); Sodium 138 mmol/L (136-145)
[2024-01-06 05:57] LABS: Calcium 6.6 mg/dL (8.7-10.4)
[2024-01-06 06:02] LABS: Glucose 116 mg/dL (74-106)
[2024-01-06 06:31] LABS: Blood Urea Nitrogen < 5 mg/dL (9-23)
[2024-01-06 07:08] LABS: Basophils # (auto) 0 10 ^3/uL (0-0.2); Basophils % (auto) 0.3 % (0.0-2.0); Eosinophils # (auto) 0.1 10 ^3/uL (0-0.8); Eosinophils % (auto) 1.8 % (0.0-7.0); Hematocrit 37.7 % (41.0-53.0); Hemoglobin 13.1 g/dL (13.5-17.5); Lymphocytes % (auto) 13.3 % (10.0-50.0); Mean Corpuscular Hemoglobin 35.5 pg (28.0-32.0); Mean Corpuscular Hgb Conc. 34.8 g/dL (32.0-36.0); Monocytes # (auto) 0.4 10 ^3/uL (0-1.3); Monocytes % (auto) 5.8 % (0.0-12.0); Neutrophils # (auto) 5.7 10 ^3/uL (1.6-8.6); Neutrophils % (auto) 78.8 % (37.0-80.0); Nucleated Red Blood Cells % 0.3 %; Red Cell Distribution Width 15.6 % (11.8-14.3); White Blood Cell 7.3 10^3/uL (4.4-10.8)
[2024-01-06] MEDS: POTASSIUM CHL 20MEQ/100ML 0 ML IV ONE (08:12)
[2024-01-06] MEDS: POTASSIUM CHL 20MEQ/100ML 100 ML IV SCH (09:42)
[2024-01-06] MEDS: MAGNESIUM SULFATE 1GM/100ML 100 ML IV SCH (09:44)
[2024-01-06] MEDS: metroNIDAZOLE 500MG/100ML 100 ML IV ONE (11:12)
[2024-01-06] MEDS: metroNIDAZOLE 500MG/100ML 100 ML IV SCH (14:58)
[2024-01-06] MEDS: POTASSIUM EFFERVESENT TAB 25 MEQ PO SCH (14:58)
[2024-01-07] VITALS (8 sets, daily range): BP systolic 97–120; BP diastolic 65–76; PULSE 79–94; RESP 16–20; TEMP 97.3–98.2; O2SAT 91–100
[2024-01-07 07:28] LABS: Basophils # (auto) 0 10 ^3/uL (0-0.2); Basophils % (auto) 0.5 % (0.0-2.0); Eosinophils # (auto) 0.1 10 ^3/uL (0-0.8); Eosinophils % (auto) 1.8 % (0.0-7.0); Hematocrit 33.4 % (41.0-53.0); Hemoglobin 11.7 g/dL (13.5-17.5); Lymphocytes # (auto) 1.1 10 ^3/uL (0.4-5.4); Lymphocytes % (auto) 20.2 % (10.0-50.0); Mean Corpuscular Hemoglobin 35.4 pg (28.0-32.0); Mean Corpuscular Volume 101.1 fL (80.0-100.0); Monocytes # (auto) 0.4 10 ^3/uL (0-1.3); Monocytes % (auto) 7.5 % (0.0-12.0); Neutrophils # (auto) 3.9 10 ^3/uL (1.6-8.6); Nucleated Red Blood Cells % 0.1 %; Red Cell Distribution Width 15.1 % (11.8-14.3); White Blood Cell 5.6 10^3/uL (4.4-10.8)
[2024-01-07 07:40] LABS: Chloride 103 mmol/L (98-107); Potassium 3.4 mmol/L (3.5-5.1); Sodium 140 mmol/L (136-145)
[2024-01-07 07:41] LABS: Anion Gap 6 (5-15); Calcium 6.3 mg/dL (8.5-10.1); Carbon Dioxide 31 mmol/L (20-30)
[2024-01-07 07:46] LABS: Glucose 111 mg/dL (74-106)
[2024-01-07 07:47] LABS: Magnesium 1.3 mg/dL (1.6-2.6)
[2024-01-07 07:53] LABS: BUN/Creatinine Ratio 6.1 (10.0-20.0); Blood Urea Nitrogen < 5 mg/dL (9-23)
[2024-01-07] MEDS: POTASSIUM CHL 20MEQ/100ML 100 ML IV SCH (08:34)
[2024-01-07] MEDS: MAGNESIUM SULFATE 1GM/100ML 100 ML IV SCH (08:36)
[2024-01-07] MEDS: CALCIUM GLUC 1,000mg/50ml-NS 50 ML IV SCH (14:57)
[2024-01-07 16:36] LABS: Calcium 6.8 mg/dL (8.5-10.1); Chloride 105 mmol/L (98-107); Sodium 140 mmol/L (136-145)
[2024-01-07 16:37] LABS: Anion Gap 5 (5-15); Carbon Dioxide 30 mmol/L (20-30)
[2024-01-07 16:42] LABS: Glucose 101 mg/dL (74-106)
[2024-01-07 16:43] LABS: BUN/Creatinine Ratio 6.5 (10.0-20.0); Blood Urea Nitrogen < 5 mg/dL (9-23)
[2024-01-07 18:19] LABS: Basophils # (auto) 0 10 ^3/uL (0-0.2); Eosinophils # (auto) 0.1 10 ^3/uL (0-0.8); Eosinophils % (auto) 2.3 % (0.0-7.0); Hematocrit 34.7 % (41.0-53.0); Hemoglobin 11.9 g/dL (13.5-17.5); Lymphocytes # (auto) 1.2 10 ^3/uL (0.4-5.4); Mean Corpuscular Hemoglobin 34.5 pg (28.0-32.0); Monocytes # (auto) 0.4 10 ^3/uL (0-1.3); Nucleated Red Blood Cells % 0.1 %
[2024-01-07 18:21] LABS: Basophils % (auto) 0.7 % (0.0-2.0); Lymphocytes % (auto) 20.6 % (10.0-50.0); Mean Corpuscular Hgb Conc. 34.4 g/dL (32.0-36.0); Mean Corpuscular Volume 100.3 fL (80.0-100.0); Monocytes % (auto) 6.3 % (0.0-12.0); Neutrophils # (auto) 4.2 10 ^3/uL (1.6-8.6); Neutrophils % (auto) 70.1 % (37.0-80.0); Red Blood Cells 3.46 10^6/uL (4.5-5.90); Red Cell Distribution Width 15.1 % (11.8-14.3); White Blood Cell 5.9 10^3/uL (4.4-10.8)
[2024-01-08] VITALS (8 sets, daily range): BP systolic 102–149; BP diastolic 65–95; PULSE 77–90; RESP 17–20; TEMP 97.2–98.4; O2SAT 90–97
[2024-01-08 07:18] LABS: Basophils # (auto) 0 10 ^3/uL (0-0.2); Eosinophils # (auto) 0.1 10 ^3/uL (0-0.8); Neutrophils # (auto) 4.5 10 ^3/uL (1.6-8.6); Nucleated Red Blood Cells % 0.1 %; White Blood Cell 5.9 10^3/uL (4.4-10.8)
[2024-01-08 07:21] LABS: Basophils % (auto) 0.7 % (0.0-2.0); Eosinophils % (auto) 2.2 % (0.0-7.0); Hematocrit 36.1 % (41.0-53.0); Hemoglobin 12.6 g/dL (13.5-17.5); Lymphocytes # (auto) 0.9 10 ^3/uL (0.4-5.4); Lymphocytes % (auto) 14.8 % (10.0-50.0); Mean Corpuscular Hemoglobin 35.7 pg (28.0-32.0); Mean Corpuscular Hgb Conc. 34.8 g/dL (32.0-36.0); Mean Corpuscular Volume 102.5 fL (80.0-100.0); Monocytes # (auto) 0.4 10 ^3/uL (0-1.3); Monocytes % (auto) 6.1 % (0.0-12.0); Neutrophils % (auto) 76.2 % (37.0-80.0); Red Blood Cells 3.52 10^6/uL (4.5-5.90); Red Cell Distribution Width 15.5 % (11.8-14.3)
[2024-01-08 07:27] LABS: Anion Gap 5 (5-15); Carbon Dioxide 27 mmol/L (20-30); Chloride 106 mmol/L (98-107); Potassium 4.4 mmol/L (3.5-5.1); Sodium 138 mmol/L (136-145)
[2024-01-08 07:28] LABS: Calcium 7.5 mg/dL (8.5-10.1)
[2024-01-08 07:33] LABS: Glucose 96 mg/dL (74-106)
[2024-01-08 07:34] LABS: Magnesium 1.8 mg/dL (1.6-2.6)
[2024-01-08 07:46] LABS: BUN/Creatinine Ratio 6.5 (10.0-20.0); Blood Urea Nitrogen < 5 mg/dL (9-23)
[2024-01-08] MEDS ORDERED: MAGNESIUM OXIDE 400 MG TAB PO ONE (08:30)
[2024-01-08] MEDS: MAGNESIUM OXIDE 400 MG TAB PO SCH (09:20)
[2024-01-08] MEDS: FAMOTIDINE (10MG/ML) 2ML VL IV ONE (12:44)
[2024-01-08] MEDS: FAMOTIDINE (10MG/ML) 2ML VL IV SCH (22:14)
[2024-01-09] VITALS (52 sets, daily range): BP systolic 97–149; BP diastolic 48–100; PULSE 78–128; RESP 15–34; TEMP 97.8–98.5; O2SAT 87–100
[2024-01-09] MEDS: IPRATROPIUM BROM 0.5 MG/2.5ML INH SOL ONE (04:28)
[2024-01-09 04:29] LABS: Chloride 108 mmol/L (98-107); Potassium 4.2 mmol/L (3.5-5.1); Sodium 137 mmol/L (136-145)
[2024-01-09 04:30] LABS: Anion Gap 7 (5-15); Basophils # (auto) 0.1 10 ^3/uL (0-0.2); Calcium 8.5 mg/dL (8.7-10.4); Carbon Dioxide 22 mmol/L (20-30); Eosinophils # (auto) 0.3 10 ^3/uL (0-0.8); Eosinophils % (auto) 3.6 % (0.0-7.0); Lymphocytes # (auto) 2.4 10 ^3/uL (0.4-5.4); White Blood Cell 9.4 10^3/uL (4.4-10.8)
[2024-01-09 04:32] LABS: Basophils % (auto) 1.4 % (0.0-2.0); Hematocrit 37.8 % (41.0-53.0); Hemoglobin 12.8 g/dL (13.5-17.5); Lymphocytes % (auto) 25.7 % (10.0-50.0); Mean Corpuscular Hemoglobin 35.3 pg (28.0-32.0); Mean Corpuscular Volume 103.9 fL (80.0-100.0); Monocytes # (auto) 0.7 10 ^3/uL (0-1.3); Monocytes % (auto) 7.1 % (0.0-12.0); Neutrophils # (auto) 5.9 10 ^3/uL (1.6-8.6); Neutrophils % (auto) 62.2 % (37.0-80.0); Nucleated Red Blood Cells % 0.3 %; Red Blood Cells 3.63 10^6/uL (4.5-5.90); Red Cell Distribution Width 15.4 % (11.8-14.3)
[2024-01-09 04:35] LABS: Glucose 126 mg/dL (74-106)
[2024-01-09 04:38] LABS: BUN/Creatinine Ratio 5.7 (10.0-20.0); Blood Urea Nitrogen < 5 mg/dL (9-23)
[2024-01-09] MEDS: IPRATROPIUM BROM 0.5 MG/2.5ML INH SOL NEB ONE (04:41)
[2024-01-09] MEDS: FUROSEMIDE 20 MG/2 ML VIAL IV ONE (05:15)
[2024-01-09 05:16] LABS: Base Excess -6.2 mmol/L (-2.0-2.0)
[2024-01-09] MEDS: MAGNESIUM SULFATE 1GM/100ML 100 ML IV ONE (05:19)
[2024-01-09] MEDS: FUROSEMIDE INJECTION 10 ML ONE (06:16)
[2024-01-09] MEDS: FUROSEMIDE INJECTION 100 MG in D5W 5% 100 ML IV SCH (06:19)
[2024-01-09] MEDS: IPRATROPIUM BROM 0.5 MG/2.5ML INH SOL NEB SCH (06:49)
[2024-01-09] MEDS: MAGNESIUM SULFATE 1GM/100ML 100 ML IV SCH (10:00)
[2024-01-09] MEDS: LORazepam 2MG/ML-1ML VIAL IV PRN (11:43)
[2024-01-09] MEDS: dilTIAZem HCL 180MG ER CAP PO SCH (12:20)
[2024-01-09 14:23] LABS: Chloride 106 mmol/L (98-107); Potassium 5.1 mmol/L (3.5-5.1); Sodium 137 mmol/L (136-145)
[2024-01-09 14:24] LABS: Anion Gap 6 (5-15); Calcium 8.8 mg/dL (8.7-10.4); Carbon Dioxide 25 mmol/L (20-30)
[2024-01-09 14:29] LABS: BUN/Creatinine Ratio 8.2 (10.0-20.0); Blood Urea Nitrogen 8 mg/dL (9-23); Glucose 116 mg/dL (74-106)
[2024-01-09] MEDS ORDERED: APIX5TAB4 PO (16:34)
[2024-01-09] MEDS: ENOXAPARIN SOD 100 MG/1 ML SYRINGE SC SCH (22:00)
[2024-01-10] VITALS (28 sets, daily range): BP systolic 98–118; BP diastolic 50–72; PULSE 67–93; RESP 12–22; TEMP 97.7–98.5; O2SAT 92–100
[2024-01-10 04:11] LABS: Eosinophils # (auto) 0.1 10 ^3/uL (0-0.8); Hemoglobin 11.4 g/dL (13.5-17.5); Lymphocytes # (auto) 1.2 10 ^3/uL (0.4-5.4); Neutrophils # (auto) 3.7 10 ^3/uL (1.6-8.6); White Blood Cell 5.6 10^3/uL (4.4-10.8)
[2024-01-10 04:23] LABS: Anion Gap 7 (5-15); Basophils # (auto) 0 10 ^3/uL (0-0.2); Basophils % (auto) 0.8 % (0.0-2.0); Carbon Dioxide 27 mmol/L (20-30); Chloride 103 mmol/L (98-107); Eosinophils % (auto) 2.3 % (0.0-7.0); Hematocrit 33.4 % (41.0-53.0); Mean Corpuscular Hemoglobin 35.3 pg (28.0-32.0); Mean Corpuscular Volume 103.7 fL (80.0-100.0); Monocytes # (auto) 0.6 10 ^3/uL (0-1.3); Monocytes % (auto) 10.1 % (0.0-12.0); Neutrophils % (auto) 65.8 % (37.0-80.0); Potassium 3.8 mmol/L (3.5-5.1); Red Blood Cells 3.22 10^6/uL (4.5-5.90); Red Cell Distribution Width 14.8 % (11.8-14.3); Sodium 137 mmol/L (136-145)
[2024-01-10 04:24] LABS: Calcium 8.8 mg/dL (8.7-10.4)
[2024-01-10 04:29] LABS: Glucose 80 mg/dL (74-106)
[2024-01-10 04:30] LABS: Magnesium 1.6 mg/dL (1.6-2.6)
[2024-01-10 04:36] LABS: BUN/Creatinine Ratio 5.6 (10.0-20.0); Blood Urea Nitrogen < 5 mg/dL (9-23)
[2024-01-10] MEDS: POTASSIUM CHL 20MEQ/100ML 100 ML IV ONE (08:39)
[2024-01-10] MEDS: MAGNESIUM SULFATE 1GM/100ML 100 ML IV ONE (12:01)
[2024-01-10 14:28] LABS: Chloride 101 mmol/L (98-107); Potassium 3.8 mmol/L (3.5-5.1); Sodium 135 mmol/L (136-145)
[2024-01-10 14:29] LABS: Anion Gap 6 (5-15); Carbon Dioxide 28 mmol/L (20-30)
[2024-01-10 14:34] LABS: BUN/Creatinine Ratio 7.8 (10.0-20.0); Blood Urea Nitrogen 7 mg/dL (9-23); Glucose 106 mg/dL (74-106)
[2024-01-10] MEDS: chlordiazePOXIDE HCL 25 MG CAP PO ONE (15:23)
[2024-01-10] MEDS: FUROSEMIDE 40 MG/4 ML VIAL IV SCH (18:00)
[2024-01-10] MEDS: chlordiazePOXIDE HCL 25 MG CAP PO SCH (18:42)
[2024-01-11] VITALS (16 sets, daily range): BP systolic 106–115; BP diastolic 65–76; PULSE 61–75; RESP 16–20; TEMP 97.4–98; O2SAT 91–100
[2024-01-11 06:58] LABS: Basophils # (auto) 0.1 10 ^3/uL (0-0.2); Eosinophils # (auto) 0.1 10 ^3/uL (0-0.8); Eosinophils % (auto) 2.7 % (0.0-7.0); Hematocrit 34.1 % (41.0-53.0); Hemoglobin 11.9 g/dL (13.5-17.5); Lymphocytes # (auto) 1.3 10 ^3/uL (0.4-5.4); Lymphocytes % (auto) 24.4 % (10.0-50.0); Mean Corpuscular Hemoglobin 35.6 pg (28.0-32.0); Mean Corpuscular Hgb Conc. 34.8 g/dL (32.0-36.0); Mean Corpuscular Volume 102.3 fL (80.0-100.0); Monocytes # (auto) 0.5 10 ^3/uL (0-1.3); Neutrophils # (auto) 3.4 10 ^3/uL (1.6-8.6); Neutrophils % (auto) 62.9 % (37.0-80.0); Nucleated Red Blood Cells % 0.4 %; Red Blood Cells 3.33 10^6/uL (4.5-5.90); Red Cell Distribution Width 14.4 % (11.8-14.3); White Blood Cell 5.4 10^3/uL (4.4-10.8)
[2024-01-11 07:13] LABS: Alanine Aminotransferase 22 U/L (7-40); Alkaline Phosphatase 67 U/L (46-116); Anion Gap 4 (5-15); BUN/Creatinine Ratio 8.3 (10.0-20.0); Blood Urea Nitrogen 9 mg/dL (9-23); Calcium 9.2 mg/dL (8.7-10.4); Carbon Dioxide 30 mmol/L (20-30); Chloride 103 mmol/L (98-107); Glucose 117 mg/dL (74-106); Potassium 3.8 mmol/L (3.5-5.1); Sodium 137 mmol/L (136-145)
[2024-01-11 07:14] LABS: Magnesium 1.7 mg/dL (1.6-2.6)
[2024-01-11 07:15] LABS: Albumin 3.3 g/dL (3.2-4.8); Aspartate Aminotransferase 30 U/L (13-40); Bilirubin, Total 0.6 mg/dL (0.2-1.0)
[2024-01-11 07:16] LABS: Total Protein 5.9 g/dL (5.7-8.2)
[2024-01-11] MEDS ORDERED: FUROSEMIDE 40 MG/4 ML VIAL IV SCH (10:00)
[2024-01-11] MEDS: MAGNESIUM SULFATE 1GM/100ML 100 ML IV SCH (10:09)
[2024-01-11] MEDS ORDERED: VANC125C3 PO (16:09)
== END 2024-01-11 19:07 | disposition home or self-care (01) | DRG 371 ==
LOC: ER 11:34 → EDBD 11:34 → ER 17:18 → TELE 17:18 → TELE-CENTR 21:54 → ICU WEST 01-09 04:50 → TELE-WESTW 01-10 10:18
PROVIDERS: ADMIT Internal Medicine Geriatric Medicine; ATTEND Neuromusculoskeletal Medicine & OMM
PROC: 05HD33Z Insertion of Infusion Device into Right Cephalic Vein, Percutaneous Approach (ICD-10-PCS; principal; 2024-01-04)
PROC: B54MZZA Ultrasonography of Right Upper Extremity Veins, Guidance (ICD-10-PCS; 2024-01-04)
PROC: 5A09357 Assistance with Respiratory Ventilation, Less than 24 Consecutive Hours, Continuous Positive Airway Pressure (ICD-10-PCS; 2024-01-09)
DX: A04.72 Enterocolitis due to Clostridium difficile, not specified as recurrent (principal); I50.33 Acute on chronic diastolic (congestive) heart failure; J96.21 Acute and chronic respiratory failure with hypoxia; N17.0 Acute kidney failure with tubular necrosis; I47.10 Supraventricular tachycardia, unspecified; E87.20 Acidosis, unspecified; I48.0 Paroxysmal atrial fibrillation; I11.0 Hypertensive heart disease with heart failure; K70.30 Alcoholic cirrhosis of liver without ascites; E87.6 Hypokalemia; K21.9 Gastro-esophageal reflux disease without esophagitis; E78.5 Hyperlipidemia, unspecified; K80.20 Calculus of gallbladder without cholecystitis without obstruction; F10.10 Alcohol abuse, uncomplicated; Y90.9 Presence of alcohol in blood, level not specified; E83.42 Hypomagnesemia; E66.9 Obesity, unspecified; I25.10 Atherosclerotic heart disease of native coronary artery without angina pectoris; I45.9 Conduction disorder, unspecified; F17.210 Nicotine dependence, cigarettes, uncomplicated; Z83.3 Family history of diabetes mellitus; Z82.49 Family history of ischemic heart disease and other diseases of the circulatory system; Z82.0 Family history of epilepsy and other diseases of the nervous system; Z80.52 Family history of malignant neoplasm of bladder; Z68.26 Body mass index [BMI] 26.0-26.9, adult; Z99.81 Dependence on supplemental oxygen
CPT/HCPCS: 36415; 36600; 70450; 71045; 71046; 76705; 80048; 80053; 80307; 81001; 82805; 82962; 83605; 83735; 83880; 83930; 83970; 84132; 84443; 84484; 85025; 85379; 85610; 85730; 87040; 87081; 87493; 93005; 93306; 94640; 97116; 97530; G0378; J2001; J2543; J3480; J3490; J7060; Q0161

== ENCOUNTER 2024-04-14 07:38 | Inpatient (IN) | payer MEDICARE, OTHER ==
[~2024-04-14] VITALS: Ht 180.3 cm; Wt 89.2 kg
[~2024-04-14 07:38] MED LIST changes: +APIX5TAB4 PO; +BACL10TA PO; -CIPR-173 PO; +DAPA1TAB4 PO; +METO1TAB77 PO; -METO25TA93 PO; -METR500T PO; -OMEP20TA PO; +SACU1TAB7 PO; +SUCR1TAB PO
[2024-04-14] MEDS: SODIUM CHLORIDE 0.9% 1,000 ML IV ONE ×2 (08:30→09:12)
[2024-04-14 08:43] LABS: Alanine Aminotransferase 10 U/L (7-40); Albumin 4.1 g/dL (3.2-4.8); Alkaline Phosphatase 82 U/L (46-116); Anion Gap 20 (5-15); Aspartate Aminotransferase 25 U/L (13-40); Basophils # (auto) 0.1 10 ^3/uL (0-0.2); Calcium 7.2 mg/dL (8.7-10.4); Carbon Dioxide 24 mmol/L (20-31); Chloride 91 mmol/L (98-107); Eosinophils # (auto) 0.3 10 ^3/uL (0-0.8); Glucose 206 mg/dL (74-106); Hemoglobin 15.8 g/dL (13.5-17.5); Mean Corpuscular Hemoglobin 36.7 pg (28.0-32.0); Monocytes # (auto) 1.4 10 ^3/uL (0-1.3); Nucleated Red Blood Cells % 0.2 %; Sodium 135 mmol/L (136-145); White Blood Cell 15.5 10^3/uL (4.4-10.8)
[2024-04-14 08:44] LABS: Basophils % (auto) 0.6 % (0.0-2.0); Eosinophils % (auto) 1.7 % (0.0-7.0); Hematocrit 45.8 % (41.0-53.0); Lymphocytes # (auto) 4.3 10 ^3/uL (0.4-5.4); Lymphocytes % (auto) 27.6 % (10.0-50.0); Mean Corpuscular Hgb Conc. 34.5 g/dL (32.0-36.0); Mean Corpuscular Volume 106.4 fL (80.0-100.0); Monocytes % (auto) 9.3 % (0.0-12.0); Neutrophils # (auto) 9.4 10 ^3/uL (1.6-8.6); Neutrophils % (auto) 60.8 % (37.0-80.0); Phosphorus 3.4 mg/dL (2.4-5.1); Platelet Count (auto) 315 10^3/uL (140-450); Red Blood Cells 4.31 10^6/uL (4.5-5.90); Red Cell Distribution Width 16.3 % (11.8-14.3); Total Protein 7.2 g/dL (5.7-8.2)
[2024-04-14 08:47] LABS: Lactic Acid w/Reflex 12.6 mmol/L (0.4-2.0)
[2024-04-14 08:48] LABS: BUN/Creatinine Ratio 3.4 (10.0-20.0); Blood Urea Nitrogen < 5 mg/dL (9-23); Magnesium 0.7 mg/dL (1.6-2.6); Potassium 2.1 mmol/L (3.5-5.1)
[2024-04-14 09:00] VITALS: RESP 22; O2SAT 99
[2024-04-14] MEDS: POTASSIUM CHL 20MEQ/100ML 100 ML IV SCH (09:58)
[2024-04-14] MEDS: MAGNESIUM SULFATE 1GM/100ML 100 ML IV SCH (09:58)
[2024-04-14 11:10] VITALS: BP 126/72; PULSE 77; RESP 20; TEMP 97.7; O2SAT 100
[2024-04-14] MEDS: CALCIUM GLUC 1,000mg/50ml-NS 50 ML IV SCH (12:58)
[2024-04-14] MEDS ORDERED: CALCIUM GLUC 1,000mg/50ml-NS 50 ML IV SCH (14:45)
[2024-04-14] MEDS: CALCIUM GLUC 1,000mg/50ml-NS 50 ML IV ONE (15:02)
[2024-04-14] MEDS: MAGNESIUM SULFATE 1GM/100ML 100 ML IV ONE (15:02)
[2024-04-14] MEDS ORDERED: ONDANSETRON HCL 4 MG/2 ML VIAL IV PRN (16:30)
[2024-04-14] MEDS ORDERED: NITROGLYCERIN 0.4 MG SL TAB SL PRN (16:30)
[2024-04-14] MEDS ORDERED: DOCUSATE SOD 100 MG CAP PO PRN (16:30)
[2024-04-14] MEDS: SODIUM CHLORIDE 0.9% 1,000 ML IV SCH (17:00)
[2024-04-14 17:14] LABS: Urine Bacteria FEW /hpf (None Seen); Urine Blood Negative /uL (Negative); Urine Clarity Clear (Clear); Urine Color Light-Orange (Yellow); Urine Mucus FEW (None Seen); Urine Protein, UAD 1+ (Negative); Urine Specific Gravity 1.011 (1.001-1.035); Urine Urobilinogen Normal (Negative); Urine WBC 4 /hpf (0 - 3)
[2024-04-14] MEDS: FOLIC ACID 1 MG, MAGNESIUM SULF SDV 50% 8 MEQ, MULTIPLE VITAMIN 10 ML, THIAMINE INJ 100... INJ SCH (18:00)
[2024-04-14 18:33] LABS: Magnesium 1.8 mg/dL (1.6-2.6)
[2024-04-14] MEDS ORDERED: DEXTROSE (50%) 50ML SYRG IV PRN (18:45)
[2024-04-14 18:55] LABS: Potassium 2.1 mmol/L (3.5-5.1)
[2024-04-14 19:25] VITALS: PULSE 91; RESP 14; O2SAT 96
[2024-04-14] MEDS: PANTOPRAZOLE 40 MG/10 ML VIAL INJ IV ONE (19:27)
[2024-04-14] MEDS: ENOXAPARIN SOD 40 MG/0.4 ML SYRINGE SC SCH (19:27)
[2024-04-14] MEDS: chlordiazePOXIDE HCL 25 MG CAP PO SCH (19:27)
[2024-04-14] MEDS: PIPERACILLIN-TAZOB 3.375GM 100 ML IV ONE (20:00)
[2024-04-14] MEDS ORDERED: PIPERACILLIN-TAZOB 3.375GM 100 ML IV ONE (20:15)
[2024-04-14] MEDS: ACCU-CHEK COMFORT CURVE STRIP VI SCH (21:56)
[2024-04-14] MEDS: InsuLIN REG 1unit/0.01ml Soln (100units/ml) SC SCH (21:57)
[2024-04-14] MEDS: POTASSIUM CHL 20MEQ/100ML 100 ML IV ONE (22:15)
[2024-04-14 23:01] VITALS: PULSE 77; RESP 20; O2SAT 100
[2024-04-15] VITALS (8 sets, daily range): BP systolic 99–140; BP diastolic 55–78; PULSE 70–98; RESP 18–20; TEMP 97.2–97.7; O2SAT 95–99
[2024-04-15] MEDS: PIPERACILLIN-TAZOB 3.375GM 100 ML IV SCH (00:57)
[2024-04-15] MEDS: MORPHINE SULFATE INJ 2 MG/ml SYRG IV PRN (04:03)
[2024-04-15] MEDS: POTASSIUM CHL 20MEQ/100ML 100 ML IV SCH ×2 (04:27→17:51)
[2024-04-15 08:18] LABS: Basophils # (auto) 0 10 ^3/uL (0-0.2); Eosinophils # (auto) 0.2 10 ^3/uL (0-0.8); Lymphocytes # (auto) 1.8 10 ^3/uL (0.4-5.4)
[2024-04-15] MEDS: PANTOPRAZOLE 40 MG/10 ML VIAL INJ IV SCH (08:18)
[2024-04-15 08:19] LABS: Alkaline Phosphatase 62 U/L (46-116); Calcium 6.7 mg/dL (8.7-10.4); Carbon Dioxide 32 mmol/L (20-31); Chloride 101 mmol/L (98-107)
[2024-04-15 08:20] LABS: Albumin 3.3 g/dL (3.2-4.8); Anion Gap 8 (5-15); Aspartate Aminotransferase 19 U/L (13-40); Basophils % (auto) 0.7 % (0.0-2.0); Bilirubin, Total 2.2 mg/dL (0.2-1.0); Glucose 99 mg/dL (74-106); Hematocrit 33.8 % (41.0-53.0); Hemoglobin 12.3 g/dL (13.5-17.5); Lymphocytes % (auto) 24.7 % (10.0-50.0); Mean Corpuscular Hemoglobin 38.7 pg (28.0-32.0); Mean Corpuscular Hgb Conc. 36.4 g/dL (32.0-36.0); Mean Corpuscular Volume 106.1 fL (80.0-100.0); Monocytes # (auto) 0.5 10 ^3/uL (0-1.3); Monocytes % (auto) 7.6 % (0.0-12.0); Neutrophils # (auto) 4.6 10 ^3/uL (1.6-8.6); Nucleated Red Blood Cells % 0.2 %; Platelet Count (auto) 140 10^3/uL (140-450); Red Blood Cells 3.18 10^6/uL (4.5-5.90); Red Cell Distribution Width 16.1 % (11.8-14.3); Sodium 141 mmol/L (136-145); Total Protein 5.7 g/dL (5.7-8.2); White Blood Cell 7.1 10^3/uL (4.4-10.8)
[2024-04-15 08:21] LABS: Alanine Aminotransferase < 9 U/L (7-40); BUN/Creatinine Ratio 4.3 (10.0-20.0); Blood Urea Nitrogen < 5 mg/dL (9-23)
[2024-04-15 08:23] LABS: Potassium 2.3 mmol/L (3.5-5.1)
[2024-04-15 08:59] LABS: Macrocytosis Moderate; Platelet Estimate Adequate
[2024-04-15] MEDS: MAGNESIUM SULFATE 1GM/100ML 100 ML IV ONE ×2 (09:26→14:51)
[2024-04-15] MEDS: POTASSIUM CHLORIDE 80 MEQ, LIDOCAINE 1% (LOCAL ANESTH.) 6 ML in SODIUM CHL 0.9% 500 ML IV STA (09:44)
[2024-04-15] MEDS: chlordiazePOXIDE HCL 25 MG CAP PO SCH (12:23)
[2024-04-15] MEDS: THIAMINE HCL 100 MG TAB PO ONE (12:24)
[2024-04-15] MEDS: HYDROcodone-ACET 5/325MG TAB PO ONE (12:25)
[2024-04-15] MEDS: FOLIC ACID 1 MG TAB PO ONE (12:25)
[2024-04-15] MEDS: CALCIUM GLUC 1,000mg/50ml-NS 50 ML IV ONE (13:57)
[2024-04-15 15:31] LABS: Protein, Urine 44.6 mg/dL (1-14)
[2024-04-15 15:34] LABS: Creatinine, Urine 121.78 mg/dL (30.0-125.0)
[2024-04-15] MEDS: MAGNESIUM SULFATE 1GM/100ML 100 ML IV SCH (15:57)
[2024-04-15] MEDS ORDERED: POTASSIUM CHL 20MEQ/100ML 100 ML IV SCH (20:45)
[2024-04-16] VITALS (9 sets, daily range): BP systolic 114–145; BP diastolic 69–92; PULSE 65–165; RESP 18–20; TEMP 97.6–97.8; O2SAT 90–99
[2024-04-16 05:59] LABS: Basophils # (auto) 0 10 ^3/uL (0-0.2); Basophils % (auto) 0.7 % (0.0-2.0); Eosinophils # (auto) 0.2 10 ^3/uL (0-0.8); Eosinophils % (auto) 3.3 % (0.0-7.0); Hemoglobin 11.6 g/dL (13.5-17.5); Lymphocytes # (auto) 1.5 10 ^3/uL (0.4-5.4); Lymphocytes % (auto) 23.8 % (10.0-50.0); Mean Corpuscular Hemoglobin 38.6 pg (28.0-32.0); Mean Corpuscular Hgb Conc. 36.4 g/dL (32.0-36.0); Mean Corpuscular Volume 106.2 fL (80.0-100.0); Monocytes # (auto) 0.4 10 ^3/uL (0-1.3); Monocytes % (auto) 5.8 % (0.0-12.0); Neutrophils # (auto) 4.1 10 ^3/uL (1.6-8.6); Neutrophils % (auto) 66.4 % (37.0-80.0); Platelet Count (auto) 148 10^3/uL (140-450); Red Blood Cells 3.01 10^6/uL (4.5-5.90); Red Cell Distribution Width 15.7 % (11.8-14.3); White Blood Cell 6.2 10^3/uL (4.4-10.8)
[2024-04-16 06:11] LABS: Anion Gap 7 (5-15); Carbon Dioxide 30 mmol/L (20-31); Chloride 105 mmol/L (98-107); Potassium 2.7 mmol/L (3.5-5.1); Sodium 142 mmol/L (136-145)
[2024-04-16 06:17] LABS: Glucose 94 mg/dL (74-106)
[2024-04-16 06:18] LABS: BUN/Creatinine Ratio 4.4 (10.0-20.0); Blood Urea Nitrogen < 5 mg/dL (9-23)
[2024-04-16] MEDS: SODIUM CHLORIDE 0.9% 500 ML IV ONE (07:45)
[2024-04-16] MEDS: POTASSIUM CHLORIDE 80 MEQ, LIDOCAINE 1% (LOCAL ANESTH.) 6 ML in SODIUM CHL 0.9% 500 ML IV ONE (08:33)
[2024-04-16] MEDS: chlordiazePOXIDE HCL 25 MG CAP PO SCH (09:49)
[2024-04-16] MEDS: THIAMINE HCL 100 MG TAB PO SCH (09:50)
[2024-04-16] MEDS: FOLIC ACID 1 MG TAB PO SCH (09:50)
[2024-04-16] MEDS: POTASSIUM CHL 20 Meq TABLET PO SCH (09:50)
[2024-04-16] MEDS: MULTIPLE VITAMIN TAB PO SCH (09:50)
[2024-04-16] MEDS: hydrALAZINE HCL 20 MG/ML VL IV PRN (22:32)
[2024-04-16] MEDS: CARVEDILOL 12.5 MG TAB PO ONE (22:34)
[2024-04-16] MEDS: FUROSEMIDE 40 MG/4 ML VIAL IV ONE (23:32)
[2024-04-16] MEDS: dilTIAZem 25 MG/5 ML VIAL IV ONE (23:32)
[2024-04-16 23:56] LABS: Chloride 107 mmol/L (98-107); Potassium 2.9 mmol/L (3.5-5.1); Sodium 144 mmol/L (136-145)
[2024-04-16 23:57] LABS: Anion Gap 11 (5-15); Carbon Dioxide 26 mmol/L (20-31)
[2024-04-16 23:58] LABS: Calcium 7.6 mg/dL (8.7-10.4)
[2024-04-17] VITALS (11 sets, daily range): BP systolic 87–123; BP diastolic 57–88; PULSE 74–152; RESP 16–24; TEMP 97.7–98; O2SAT 94–100
[2024-04-17 00:02] LABS: Glucose 130 mg/dL (74-106)
[2024-04-17 00:12] LABS: BUN/Creatinine Ratio 4.3 (10.0-20.0); Blood Urea Nitrogen < 5 mg/dL (9-23)
[2024-04-17] MEDS: AMIODARONE BOLUS KIT 100 ML IV ONE (00:18)
[2024-04-17] MEDS: AMIODARONE 450mg/250ml AE 250 ML IV SCH ×2 (00:26→06:28)
[2024-04-17 06:16] LABS: Basophils # (auto) 0.1 10 ^3/uL (0-0.2); Hemoglobin 12.3 g/dL (13.5-17.5); Lymphocytes # (auto) 1.7 10 ^3/uL (0.4-5.4); Monocytes # (auto) 0.7 10 ^3/uL (0-1.3); White Blood Cell 10.8 10^3/uL (4.4-10.8)
[2024-04-17 06:18] LABS: Basophils % (auto) 0.6 % (0.0-2.0); Eosinophils # (auto) 0.2 10 ^3/uL (0-0.8); Hematocrit 34.4 % (41.0-53.0); Lymphocytes % (auto) 16.1 % (10.0-50.0); Mean Corpuscular Hgb Conc. 35.9 g/dL (32.0-36.0); Mean Corpuscular Volume 105.9 fL (80.0-100.0); Monocytes % (auto) 6.8 % (0.0-12.0); Neutrophils # (auto) 8.1 10 ^3/uL (1.6-8.6); Neutrophils % (auto) 74.5 % (37.0-80.0); Nucleated Red Blood Cells % 0.7 %; Platelet Count (auto) 181 10^3/uL (140-450); Red Blood Cells 3.25 10^6/uL (4.5-5.90); Red Cell Distribution Width 15.7 % (11.8-14.3)
[2024-04-17] MEDS: chlordiazePOXIDE HCL 25 MG CAP PO SCH (06:26)
[2024-04-17 06:42] LABS: Anion Gap 7 (5-15); Carbon Dioxide 31 mmol/L (20-31); Chloride 104 mmol/L (98-107); Potassium 2.9 mmol/L (3.5-5.1); Sodium 142 mmol/L (136-145)
[2024-04-17 06:43] LABS: Calcium 7.6 mg/dL (8.7-10.4)
[2024-04-17 06:49] LABS: Glucose 104 mg/dL (74-106)
[2024-04-17 06:51] LABS: BUN/Creatinine Ratio 4.2 (10.0-20.0); Blood Urea Nitrogen < 5 mg/dL (9-23)
[2024-04-17] MEDS: SPIRONOLACTONE 25 MG TAB PO SCH ×2 (11:14→14:00)
[2024-04-17] MEDS: CARVEDILOL 12.5 MG TAB PO SCH (11:15)
[2024-04-17] MEDS: FUROSEMIDE 40 MG/4 ML VIAL IV SCH (11:17)
[2024-04-17 11:46] LABS: Base Excess 4.1 mmol/L (-2.0-3.0)
[2024-04-17] MEDS: MAGNESIUM SULFATE 1GM/100ML 100 ML IV SCH (12:29)
[2024-04-17] MEDS: CALCIUM GLUC 1,000mg/50ml-NS 50 ML IV ONE (12:29)
[2024-04-17] MEDS: POTASSIUM CHLORIDE 80 MEQ, LIDOCAINE 1% (LOCAL ANESTH.) 6 ML in SODIUM CHL 0.9% 500 ML IV ONE (12:29)
[2024-04-17] MEDS: POTASSIUM CHL 20 Meq TABLET PO SCH (17:18)
[2024-04-17] MEDS: AMIODARONE HCL 200 MG TAB PO SCH (21:01)
[2024-04-18] MEDS: MAGNESIUM SULFATE 1GM/100ML 100 ML IV ONE (00:55)
[2024-04-18 01:00] VITALS: BP 110/77; PULSE 75; RESP 19; TEMP 97.7; O2SAT 97
[2024-04-18 05:00] VITALS: BP 128/76; PULSE 77; RESP 18; TEMP 97.6; O2SAT 96
[2024-04-18 05:59] LABS: Eosinophils # (auto) 0.3 10 ^3/uL (0-0.8); Hemoglobin 11.6 g/dL (13.5-17.5); Monocytes # (auto) 0.5 10 ^3/uL (0-1.3); Red Blood Cells 3.02 10^6/uL (4.5-5.90)
[2024-04-18 06:02] LABS: Basophils # (auto) 0.1 10 ^3/uL (0-0.2); Basophils % (auto) 0.8 % (0.0-2.0); Eosinophils % (auto) 3.9 % (0.0-7.0); Lymphocytes # (auto) 1.9 10 ^3/uL (0.4-5.4); Lymphocytes % (auto) 29.4 % (10.0-50.0); Mean Corpuscular Hemoglobin 38.3 pg (28.0-32.0); Mean Corpuscular Hgb Conc. 35.1 g/dL (32.0-36.0); Mean Corpuscular Volume 109.1 fL (80.0-100.0); Monocytes % (auto) 8.5 % (0.0-12.0); Neutrophils # (auto) 3.7 10 ^3/uL (1.6-8.6); Neutrophils % (auto) 57.4 % (37.0-80.0); Platelet Count (auto) 161 10^3/uL (140-450); Red Cell Distribution Width 15.8 % (11.8-14.3); White Blood Cell 6.4 10^3/uL (4.4-10.8)
[2024-04-18 06:21] LABS: Albumin 3.6 g/dL (3.2-4.8); Alkaline Phosphatase 59 U/L (46-116); Anion Gap 7 (5-15); Aspartate Aminotransferase 23 U/L (13-40); BUN/Creatinine Ratio 4.3 (10.0-20.0); Blood Urea Nitrogen 5 mg/dL (9-23); Calcium 7.9 mg/dL (8.7-10.4); Carbon Dioxide 26 mmol/L (20-31); Chloride 110 mmol/L (98-107); Glucose 94 mg/dL (74-106); Magnesium 2.2 mg/dL (1.6-2.6); Potassium 3.8 mmol/L (3.5-5.1); Sodium 143 mmol/L (136-145)
[2024-04-18 06:26] LABS: Alanine Aminotransferase < 9 U/L (7-40)
[2024-04-18] MEDS: FUROSEMIDE 40 MG/4 ML VIAL ONE (07:20)
[2024-04-18] MEDS: dilTIAZem 25 MG/5 ML VIAL IV ONE (07:21)
[2024-04-18] MEDS: AMIODARONE BOLUS KIT 100 ML IV ONE (07:21)
[2024-04-18] MEDS: AMIODARONE 450mg/250ml AE 250 ML IV ONE (07:21)
[2024-04-18 07:24] VITALS: O2SAT 96
[2024-04-18 08:00] VITALS: PULSE 71; O2SAT 99
[2024-04-18] MEDS: CYANOCOBALAMIN (B-12) 1000 MCG/1 ML VIAL IM ONE (08:28)
[2024-04-18] MEDS: ERGOCALCIFEROL 50,000 UNIT(1.25MG) CAP PO SCH (08:28)
[2024-04-18] MEDS: ENOXAPARIN SOD 100 MG/1 ML SYRINGE SC SCH (08:29)
[2024-04-18 09:00] VITALS: BP 122/72; PULSE 72; RESP 18; TEMP 98; O2SAT 97
[2024-04-18] MEDS: MAGNESIUM OXIDE 400 MG TAB PO SCH (10:29)
[2024-04-18] MEDS: FOLIC ACID 1 MG in D5W 5% 50 ML INJ ONE (11:10)
[2024-04-18] MEDS ORDERED: SPIR25TA PO (12:42)
[2024-04-18] MEDS ORDERED: POTA-220 PO (12:42)
[2024-04-18] MEDS ORDERED: FOLI-119 PO (12:42)
[2024-04-18] MEDS ORDERED: MAGN400T40 PO (12:42)
[2024-04-18] MEDS ORDERED: MULTTAB99 PO (12:42)
[2024-04-18] MEDS ORDERED: ERGO1CAP23 PO (12:42)
[2024-04-18] MEDS ORDERED: AMIO200T13 PO (12:42)
[2024-04-18] MEDS ORDERED: APIX5TAB PO (12:42)
[2024-04-18 13:05] VITALS: BP 137/79; PULSE 75; RESP 20; TEMP 97.8; O2SAT 94
[2024-04-18] MEDS ORDERED: APIXABAN 5 MG TAB PO SCH (22:00)
[2024-04-19 13:06] LABS: Adrenocorticotropic Hormone 11.7 pg/mL (7.2-63.3)
[2024-04-21 17:06] LABS: Renin Activity 0.355 ng/mL/hr (.)
== END 2024-04-18 17:00 | disposition home or self-care (01) | DRG 640 ==
LOC: ER 07:38 → TELE 16:33 → TELE-EAST 23:02
PROVIDERS: ADMIT Internal Medicine; ATTEND Internal Medicine
PROC: 5A09357 Assistance with Respiratory Ventilation, Less than 24 Consecutive Hours, Continuous Positive Airway Pressure (ICD-10-PCS; principal; 2024-04-16)
DX: E87.6 Hypokalemia (principal); G93.41 Metabolic encephalopathy; I50.33 Acute on chronic diastolic (congestive) heart failure; N17.0 Acute kidney failure with tubular necrosis; R65.11 Systemic inflammatory response syndrome (SIRS) of non-infectious origin with acute organ dysfunction; I48.20 Chronic atrial fibrillation, unspecified; E87.21 Acute metabolic acidosis; E83.42 Hypomagnesemia; E78.5 Hyperlipidemia, unspecified; I11.0 Hypertensive heart disease with heart failure; I95.9 Hypotension, unspecified; F17.210 Nicotine dependence, cigarettes, uncomplicated; K21.9 Gastro-esophageal reflux disease without esophagitis; I25.10 Atherosclerotic heart disease of native coronary artery without angina pectoris; E66.9 Obesity, unspecified; E83.51 Hypocalcemia; F10.10 Alcohol abuse, uncomplicated; R73.9 Hyperglycemia, unspecified; Z90.49 Acquired absence of other specified parts of digestive tract; Z82.0 Family history of epilepsy and other diseases of the nervous system; Z80.52 Family history of malignant neoplasm of bladder; Z82.49 Family history of ischemic heart disease and other diseases of the circulatory system; Z83.3 Family history of diabetes mellitus; Y90.9 Presence of alcohol in blood, level not specified; Z79.899 Other long term (current) drug therapy
CPT/HCPCS: 36415; 36600; 70450; 71045; 80048; 80053; 80320; 81001; 82024; 82088; 82306; 82533; 82570; 82607; 82746; 82805; 82962; 83036; 83605; 83735; 83880; 84100; 84132; 84156; 84244; 84300; 84443; 84484; 85025; 87040; 93005; 94660; 96365; 96367; 99291; G0378; J2003; J2470; J2543; J3480; J7060

== ENCOUNTER 2025-03-25 15:40 | Inpatient (IN) | payer OTHER, MEDICAID ==
[~2025-03-25] VITALS: Ht 180.3 cm; Wt 88.1 kg
[~2025-03-25 15:40] MED LIST changes: -ALBUAER3 IN; +AMIO200T13 PO; -AMLO1TAB23 PO; +APIX5TAB PO; -APIX5TAB4 PO; -BUDE1AER4 IN; -CHLO1TAB37 PO; -DAPA1TAB4 PO; -DILT-102 PO; +ERGO1CAP23 PO; -FLE50T PO; +FOLI-119 PO; -FURO1TAB33 PO; -HYDR-4833 PO; -LISI10TA34 PO; +MAGN400T40 PO; +MULTTAB99 PO; +POTA-220 PO; -POTA8TAB38 PO; +SPIR25TA PO; -SUCR1SUS26 PO; -SUCR1TAB PO; -VANC125C3 PO
--- NOTE | 2025-03-25 15:51 | ECG ---
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
[2025-03-25] MEDS: METOPROLOL TARTRATE 1MG/1ML-5ML VIAL IV ONE ×3 (16:00→17:17)
[2025-03-25 16:09] VITALS: PULSE 136; RESP 18; O2SAT 97
[2025-03-25 16:14] LABS: Hematocrit 39.5 % (41.0-53.0); Hemoglobin 13.3 g/dL (13.5-17.5); Mean Corpuscular Hemoglobin 32.3 pg (28.0-32.0); Mean Corpuscular Volume 95.8 fL (80.0-100.0); Nucleated Red Blood Cells % 0.0 %
[2025-03-25 16:25] LABS: Alanine Aminotransferase 20 U/L (7-40); Albumin 3.3 g/dL (3.2-4.8); Anion Gap 16 (5-15); BUN/Creatinine Ratio 7.4 (10.0-20.0); Carbon Dioxide 29 mmol/L (20-31); Glucose 97 mg/dL (74-106); Lipase 26 U/L (12-53); Sodium 138 mmol/L (136-145); Total Protein 5.8 g/dL (5.7-8.2)
[2025-03-25 16:26] LABS: Alkaline Phosphatase 128 U/L (46-116); Bilirubin, Total 1.1 mg/dL (0.2-1.0); Blood Urea Nitrogen 8 mg/dL (9-23); Calcium 6.1 mg/dL (8.7-10.4); Chloride 93 mmol/L (98-107); Potassium 2.7 mmol/L (3.5-5.1)
[2025-03-25 16:27] LABS: Lactic Acid w/Reflex 3.6 mmol/L (0.4-2.0)
--- NOTE | 2025-03-25 17:03 | ECG ---
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
--- NOTE | 2025-03-25 17:07 | ED.PDOC ---
History of Present Illness HPI Comments 64 y/o M, with a Hx of AFib, is BIB[place] from private residence for c/c AMS. Per EMS personnel report, patient's family called after finding him unresponsive, earlier, today. On scene, patient was stated to have had a low SpO2 in addition to being in AFIB. At time of assessment, patient is alert and comments on being weak since yesterday. Patient appears to be in very poor overall health. Vital signs were remarkable for tachycardia. Chief Complaint: Palpitations Time Seen by MD: 15:45 Primary Care Provider: unknown Reviewed Notes: Nurses Notes, Centrifugal Separator Notes, Medications, Allergies Allergies: Coded Allergies: NO KNOWN ALLERGIES (Unverified , 01/12/15) Home Meds Active Scripts Magnesium Oxide (MAGNESIUM OXIDE) 400 Mg Tab, 1 TAB PO DAILY, #30 TAB 2 Refills Prov:[facility] 04/18/24 Apixaban Base (ELIQUIS) 5 Mg Tab, 5 MG PO BID for 30 Days, #60 TAB 2 Refills Prov:AB [facility] 04/18/24 Spironolactone (Aldactone) 25 Mg Tab, 100 MG PO DAILY for 30 Days, #120 TAB Prov:AB [facility] 04/18/24 Potassium Chloride (Klor-Con M20) 20 Meq Tab, 20 MEQ PO DAILY for 30 Days, #30 TAB 2 Refills Prov:AB [facility] 04/18/24 Multiple Vitamin (Mvi Tab) 1 Tab Tb, 1 TAB PO DAILY for 30 Days, #30 TAB 2 Refills Prov:AB [facility] 04/18/24 Folic Acid (Folic Acid) 1 Mg Tab, 1 MG PO DAILY for 30 Days, #30 TAB 2 Refills Prov:AB [facility] 04/18/24 Ergocalciferol (VITAMIN D 91139 UNIT) 50,000 [place], [address] UNIT PO Q7D for 90 Days, #12 CAP Prov:AB [facility] 04/18/24 Amiodarone HCl (Amiodarone HCl) 200 Mg Tab, 200 MG PO Q12HR for 30 Days, #60 TAB Prov:AB [facility] 04/18/24 Reported Medications Baclofen (Baclofen) 10 Mg Tab, 1 TAB PO TID 01/04/24 Metoprolol Tartrate (Lopressor) 50 Mg Tab, 1 TAB PO BID 01/04/24 Sacubitril-Valsartan (Entresto 49-51 mg) 1 Tab Tab, 1 TAB PO BID, TAB 01/04/24 Omeprazole (Omeprazole Dr) 20 Mg Cap, 1 CAP PO DAILY 12/01/22 Information Source: Patient, Emergency Med Personnel Mode of Arrival: EMS Severity: Moderate Timing: Hours Duration: Since onset Prehospital treatment: 12 Lead EKG, Vibratory Pile Driver, Oxygen Past Medical History PAST MEDICAL HISTORY: AFIB, CHF, Gallstones, GERD, High Lipids, HTN Surgical History: Cholecystectomy Family History Family History: Unknown Social History Smoker: Cigarettes Alcohol: Occasionally Drugs: Denies Drug Use Lives In: Home Constitutional: reports: fatigue, weakness; denies: chills, diaphoresis, fever, malaise, sweats, others EENTM: denies: blurred vision, double vision, ear bleeding, ear discharge, ear drainage, ear pain, ear ringing, eye pain, eye redness, hearing loss, mouth pain, mouth swelling, nasal discharge, nose bleeding, nose congestion, nose pain, photophobia, tearing, throat pain, throat swelling, voice changes, others Respiratory: denies: cough, hemoptysis, orthopnea, SOB at rest, shortness of breath, SOB with excertion, stridor, wheezing, others Cardiovascular: denies: chest pain, dizzy spells, diaphoresis, Dyspnea on exertion, edema, irregular heart beat, left arm pain, lightheadedness, palpitations, PND, syncope, others Gastrointestinal: denies: abdomen distended, abdominal pain, blood streaked bowels, constipated, diarrhea, dysphagia, difficulty swallowing, hematemesis, melena, nausea, poor appetite, poor fluid intake, rectal bleeding, rectal pain, vomiting, others Genitourinary: denies: burning, dysuria, flank pain, frequency, hematuria, incontinence, penile discharge, penile sore, pain, testicle pain, testicle swelling, urgency, others Neurological: reports: dizziness, fainting; denies: headache, left sided numbness, left sided weakness, numbness, paresthesia, pre-existing deficit, right sided numbness, right sided weakness, seizure, speech problems, tingling, tremors, weakness, others Musculoskeletal: denies: back pain, gout, joint pain, joint swelling, muscle pain, muscle stiffness, neck pain, others Integumetry: denies: bruises, change in color, change in hair/nails, dryness, laceration, lesions, lumps, rash, wounds, others Allergic/Immunocompromised: denies: Difficulty Healing, Frequent Infections, Hives, Itching, others Hematologic/Lymphatic: denies: anemia, blood clots, easy bleeding, easy bruising, swollen glands, others Endocrine: denies: excessive hunger, excessive sweating, excessive thirst, excessive urination, flushing, intolerance to cold, intolerance to heat, unexplained weight gain, unexplained weight loss, others Psychiatric: denies: anxiety, bipolar disorder, depression, hopeless, panic disorder, schizophrenia, sleepless, suicidal, others All Other Systems: Reviewed and Negative (Comprehensive review of systems are negative unless stated in HPI) Physical Exam General Appearance: Moderate Distress (Patient appears to be in [id number] distress, but additionally appears to be in poor overall health.), Obese HEENT: Normal ENT Inspection, Pharynx Normal, TMs Normal Neck: Full Range of Motion, Non-Tender, Normal, Normal Inspection Respiratory: Chest Non-Tender, Lungs Clear, No Accessory Muscle Use, No Respiratory Distress, Normal Breath Sounds Cardiovascular: No Edema, No JVD, Normal Peripheral Pulses, Tachycardia, Other (Irregular irregular rate and rhythm.) Breast Exam: Deferred Gastrointestinal: No Organomegaly, Non Tender, No Pulsatile Mass, Normal Bowel Sounds, Soft Genitalia: Deferred Pelvic: Deferred Rectal: Deferred Extremities: Normal capillary refill, Non-tender Neurologic: Alert Cerebellar Function: NOT DONE Reflexes: NOT DONE Skin: Dry, Normal Color, Warm Lymphatic: No Adenopathy Was a procedure done? Was a procedure done?: No EKG EKG #1: Pulse Rate (adult): 147 [place]: Normal Cardiac Rhythm: Afib Block: RBBB Hypertrophy: None ST: Normal EKG #2: Pulse Rate (adult): 125 [place]: Normal Cardiac Rhythm: Afib Block: RBBB Hypertrophy: None Differential Dx Considerations may include: URI, UTI, viral syndrome, electrolyte imbalance, dehydration, hypoxia, encephalopathy, CVA, TIA, acute coronary syndrome, AFib, among others X-Ray, Labs, Meds, VS Vital Signs Date Time Temp Pulse Resp B/P (MAP) Pulse Ox O2 Delivery O2 Flow Rate FiO2 03/25/25 19:28 121 03/25/25 18:17 122 138/82 03/25/25 18:00 123 16 111/86 (94) 97 03/25/25 17:35 125 03/25/25 17:34 124 138/85 03/25/25 17:19 98.2 140 20 108/66 97 98.2 03/25/25 17:17 132 136/85 03/25/25 17:01 125 03/25/25 17:00 132 16 139/82 (101) 97 03/25/25 16:34 145 129/92 03/25/25 16:14 97 Nasal Cannula* 2 28 03/25/25 16:09 136 18 97 Room Air* 0 21 03/25/25 16:07 98.9 141 16 129/92 (104) 97 98.9 03/25/25 15:45 147 Lab Test 03/25/25 19:41 03/25/25 18:51 03/25/25 17:04 03/25/25 16:45 Range/Units Urine Color Yellow Yellow Urine Clarity Clear Clear Urine pH 6.0 5.0-9.0 Urine Specific [place] 1.030 1.001-1.035 Urine Protein 1+ H Negative Urine Ketones Negative Negative Urine Blood Negative Negative /uL Urine Nitrite Negative Negative Urine Bilirubin 1+ Negative Urine Urobilinogen 4 H Negative mg/dL Urine Leukocyte Esterase Negative Negative /uL Urine RBC 1 0 - 3 /hpf Urine Microscopic WBC 2 0-3 /HPF Urine Squamous Epithelial Cells Few <5 /hpf Urine Bacteria None seen None Seen /hpf Urine Hyaline Casts Mod 0 - 2 /lpf Urine Mucus Few None Seen Urine Glucose Normal Normal mg/dL Lactic Acid Level 1.8 0.4-2.0 mmol/L Troponin I High Sensitivity 11 11 </=54 ng/L POC Glucose 122 H 70-106 mg/dl Test 03/25/25 16:00 Range/Units White Blood Count 13.6 H 4.4-10.8 10^3/uL Red Blood Count 4.12 L 4.5-5.90 10^6/uL Hemoglobin 13.3 L 13.5-17.5 g/dL Hematocrit 39.5 L 41.0-53.0 % Mean Corpuscular Volume 95.8 80.0-100.0 fL Mean Corpuscular Hemoglobin 32.3 H 28.0-32.0 pg Mean Corpuscular Hemoglobin Concent 33.7 32.0-36.0 g/dL Red Cell Distribution Width 14.3 11.8-14.3 % Platelet Count 222 140-450 10^3/uL Mean Platelet Volume 8.9 6.9-10.8 fL Neutrophils (%) (Auto) 83.6 H 37.0-80.0 % Lymphocytes (%) (Auto) 10.3 10.0-50.0 % Monocytes (%) (Auto) 5.4 0.0-12.0 % Eosinophils (%) (Auto) 0.1 0.0-7.0 % Basophils (%) (Auto) 0.6 0.0-2.0 % Neutrophils # (Auto) 11.4 H 1.6-8.6 10 ^3/uL Lymphocytes # (Auto) 1.4 0.4-5.4 10 ^3/uL Monocytes # (Auto) 0.7 0-1.3 10 ^3/uL Eosinophils # (Auto) 0 0-0.8 10 ^3/uL Basophils # (Auto) 0.1 0-0.2 10 ^3/uL Nucleated Red Blood Cells 0.0 % Sodium Level 138 136-145 mmol/L Potassium Level 2.7 L 3.5-5.1 mmol/L Chloride Level 93 L 98-107 mmol/L Carbon Dioxide Level 29 20-31 mmol/L Anion Gap 16 H 5-15 Blood Urea Nitrogen 8 L 9-23 mg/dL Creatinine 1.08 0.700-1.30 mg/dL Glomerular Filtration Rate Calc 76 >90 mL/min BUN/Creatinine Ratio 7.4 L 10.0-20.0 Serum Glucose 97 74-106 mg/dL Lactic Acid Level 3.6 *H 0.4-2.0 mmol/L Calcium Level 6.1 L 8.7-10.4 mg/dL Total Bilirubin 1.1 H 0.2-1.0 mg/dL Aspartate Amino Transferase (AST) 61 H 13-40 U/L Alanine Aminotransferase (ALT) 20 7-40 U/L Alkaline Phosphatase 128 H 46-116 U/L Troponin I High Sensitivity 10 </=54 ng/L B-Type Natriuretic Peptide 186.91 0-100 pg/mL Total Protein 5.8 5.7-8.2 g/dL Albumin 3.3 3.2-4.8 g/dL Lipase 26 12-53 U/L Current Medications Medications (Trade) Dose Ordered Sig/Lexis Route Start Time Stop Time Status Last Admin Aspirin 325 mg ONCE ONCE PO 03/25/25 16:00 03/25/25 16:01 DC 03/25/25 16:33 Metoprolol Tartrate (Lopressor) 5 mg ONCE ONCE IV 03/25/25 16:00 03/25/25 16:01 DC 03/25/25 16:34 Metoprolol Tartrate (Lopressor) 5 mg ONCE ONCE IV 03/25/25 17:00 03/25/25 17:01 DC 03/25/25 17:17 Amiodarone HCl 100 ml @ 600 mls/hr ONCE ONCE IV 03/25/25 17:30 03/25/25 17:39 DC 03/25/25 17:41 Amiodarone HCL/ Dextrose 200 ml @ 33.33 mls/ hr ONCE ONCE IV 03/25/25 17:45 03/25/25 23:45 03/25/25 18:02 Ondansetron HCl (Zofran) 4 mg ONCE ONCE IV 03/25/25 18:00 03/25/25 18:01 DC 03/25/25 18:01 Potassium Bicarbonate (Klor-Con/Ef) 25 meq ONCE ONCE PO 03/25/25 20:30 03/25/25 20:31 DC 03/25/25 20:33 X-Ray, Labs, Meds, VS Comment All studies performed in the ED were evaluated by me personally. Serum studies confirmed elevated lactic acid, mild leukocytosis, hypokalemia, hypocalcemia and mildly elevated alk-phos. EKG initially revealed an atrial fibrillation with a rate of 125. Right bundle-branch block noted. QT interval of 345. Subsequent EKGs converted to an atrial flutter with a 2-1 AV block. Ventricular premature complex noted. Patient was given a initial dose of metoprolol 5 mg without success. Second 5 mg dose was administered without success. Patient was put on an amiodarone drip and at time of this note, rate continues to be slightly tachycardic. Patient will be admitted for electrolyte abnormalities and cardiac concerns. Patient has [employer] for insurance and therefore, I talked with Dr. Howell about additional patient presentation as well as laboratory findings and response to treatment with respect to his AFib concerns. He agreed to have the patient stave our facility for management. Authorization number [id number]. Time of 1ST Reevaluation: 20:23 Reevaluation 1ST: Improved Consultation: PCP, Cardiology Patient Education/Counseling: Diagnosis, Treatment, Other (need for admission ) Family Education/Counseling: Diagnosis, Treatment, No Family Present SEPSIS Sepsis Screen Date sepsis recognized/suspect: Mar 25, 2025 Time Sepsis recognized/suspect: 1611 Recent Procedure: No On Antibiotic Therapy: No Respiratory Rate >20: No Heart Rate >90: No Temp<36 C (96.8 F) or >38.3 C: No SBP <90 or MAP <65 mmHG: No New Acute Mental Status Change: No Is the patient on CPAP, BIPAP,: No Physician Orders Heplock Iv (03/25/25 ) Continuous Ekg Monitoring 08,12,16,20,00,04 (03/25/25 15:47) Amiodarone 360mg/200ml Premix (Nexterone (03/25/25 17:45) Amiodarone 360mg/200ml Premix (Nexterone (03/25/25 23:45) Potassium Chl 20meq/100ml (03/25/25 20:30) Calcium Gluc 1,000mg/50ml-Ns (03/25/25 20:30) Vital Signs Date Time Temp Pulse Resp B/P (MAP) Pulse Ox O2 Delivery O2 Flow Rate FiO2 03/25/25 19:28 121 03/25/25 18:17 122 138/82 03/25/25 18:00 123 16 111/86 (94) 97 03/25/25 17:35 125 03/25/25 17:34 124 138/85 03/25/25 17:19 98.2 140 20 108/66 97 98.2 03/25/25 17:17 132 136/85 03/25/25 17:01 125 03/25/25 17:00 132 16 139/82 (101) 97 03/25/25 16:34 145 129/92 03/25/25 16:14 97 Nasal Cannula* 2 28 03/25/25 16:09 136 18 97 Room Air* 0 21 03/25/25 16:07 98.9 141 16 129/92 (104) 97 98.9 03/25/25 15:45 147 Laboratory Tests Test 03/25/25 16:00 03/25/25 18:51 Lactic Acid Level 3.6 mmol/L (0.4-2.0) *H 1.8 mmol/L (0.4-2.0) White Blood Count 13.6 10^3/uL (4.4-10.8) H Medications Medications Dose Ordered Sig/Lexis Route Start Time Stop Time Status Last Admin Dose Admin Amiodarone HCl 100 ml @ 600 mls/hr ONCE ONCE IV 03/25/25 17:30 03/25/25 17:39 DC 03/25/25 17:41 Amiodarone HCL/ Dextrose 200 ml @ 33.33 mls/ hr ONCE ONCE IV 03/25/25 17:45 03/25/25 23:45 03/25/25 18:02 Aspirin 325 mg ONCE ONCE PO 03/25/25 16:00 03/25/25 16:01 DC 03/25/25 16:33 Metoprolol Tartrate 5 mg ONCE ONCE IV 03/25/25 16:00 03/25/25 16:01 DC 03/25/25 16:34 Metoprolol Tartrate 5 mg ONCE ONCE IV 03/25/25 17:00 03/25/25 17:01 DC 03/25/25 17:17 Ondansetron HCl 4 mg ONCE ONCE IV 03/25/25 18:00 03/25/25 18:01 DC 03/25/25 18:01 Potassium Bicarbonate 25 meq ONCE ONCE PO 03/25/25 20:30 03/25/25 20:31 DC 03/25/25 20:33 Departure 1 Departure Time of Disposition: 20:25 Impression: Primary Impression: Afib Additional Impressions: Hypocalcemia Hypokalemia Elevated alkaline phosphatase level Weakness Disposition: 09 ADMITTED INPATIENT Condition: Fair Discharged With: Self Critical Care Note Critical Care Time?: Yes (1 hr-critical care time only) Critical care comment: Due to the high probability of a clinically significant and possibly life- threatening deterioration, the patient required my highest level of preparedness to intervene emergently and therefore, I personally provided 1 hour of critical care time exclusive of time spent on separate billable procedures. This critic al care time includes, but isn't limited to, obtaining additional history, re- examination of the patient, evaluation of pulse oximetry, ordering and reviewing of studies, arranging urgent treatment with the development of a longer-term management plan as well as evaluation of patient's response to treatment with frequent reassessments and discussions with other providers. Stability Stability form required: No Heart Score Heart Score: Heart Score Response (Comments) Value History N/A 0 EKG N/A 0 Age N/A 0 Risk Factors N/A 0 Troponin N/A 0 Total 0 I personally scribed for ESTUARDO CARVAJAL PAC ([employer] on 03/25/25 at 17:07. Electronically submitted by Ross Ann ([email or web address]). I personally scribed for ESTUARDO CARVAJAL PAC ([employer] on 03/25/25 at 17:35. Electronically submitted by Ross Ann [email or web address]). ESTUARDO CARVAJAL PAC Mar 25, 2025 17:07
[2025-03-25] MEDS: AMIODARONE BOLUS KIT 100 ML IV ONE (17:41)
[2025-03-25] MEDS: ONDANSETRON HCL 4 MG/2 ML VIAL IV ONE (18:01)
[2025-03-25] MEDS: AMIODARONE 360mg/200mL PREMIX 200 ML IV ONE (18:02)
--- NOTE | 2025-03-25 18:50 | ECG ---
[facility] Test Date: 2025-03-25 Test Time: 18:46:08 Pat Name: TYSON CARDONA Department: Room: 0274T Gender: M Director College: ASHLEY : 1960 Requested By: ESTUARDO CARVAJAL Order Number: [id number] Reading MD: Marcelino Muse Measurements Intervals [place] Rate: 121 P: 0 [place]: 0 QRS: 46 QRSD: 133 T: -12 QT: 392 QTc: 557 Interpretive Statements Atrial flutter with 2:1 AV block Ventricular premature complex Right bundle branch block Electronically Signed On 03-27-2025 19:17:13 PDT by Marcelino Muse Please click the below link to view image of tracing.
[2025-03-25 19:56] LABS: Urine Protein, UAD 1+ (Negative)
[2025-03-25] MEDS: CALCIUM GLUC 1,000mg/50ml-NS 50 ML IV SCH (20:30)
[2025-03-25] MEDS: POTASSIUM CHL 20MEQ/100ML 100 ML IV SCH ×2 (20:30→23:39)
[2025-03-25] MEDS: POTASSIUM EFFERVESENT TAB 25 MEQ PO ONE (20:33)
[2025-03-25] MEDS ORDERED: ONDANSETRON HCL 4 MG/2 ML VIAL IV PRN ×2 (22:00→22:15)
[2025-03-25] MEDS ORDERED: HYDROcodone-ACET 5/325MG TAB PO PRN ×3 (22:00→23:45)
[2025-03-25] MEDS ORDERED: SODIUM CHLOR 0.9% PF (SALINE LOCK) 10ML VIAL/SYR IV SCH ×2 (22:00→22:15)
[2025-03-25] MEDS ORDERED: ACETAMINOPHEN 325 MG TAB PO PRN ×3 (22:00→23:45)
[2025-03-25] MEDS ORDERED: CALCIUM GLUC 1,000mg/50ml-NS 50 ML IV ONE (22:00)
[2025-03-25] MEDS ORDERED: MORPHINE SULFATE INJ 2 MG/ml SYRG IV PRN ×3 (22:00→23:45)
[2025-03-25] MEDS ORDERED: METOPROLOL TARTRATE 50 MG TAB PO SCH (22:00)
[2025-03-25] MEDS ORDERED: APIXABAN 5 MG TAB PO SCH (22:00)
[2025-03-25] MEDS: SODIUM CHLOR 0.9% PF (SALINE LOCK) 10ML VIAL/SYR IV SCH (22:00)
[2025-03-25] MEDS ORDERED: NITROGLYCERIN 0.4 MG SL TAB SL PRN ×3 (22:00→23:45)
[2025-03-25] MEDS ORDERED: DOCUSATE SOD 100 MG CAP PO PRN ×2 (22:00→22:15)
[2025-03-25] MEDS ORDERED: FAMOTIDINE (10MG/ML) 2ML VL IV SCH (22:00)
--- NOTE | 2025-03-25 22:13 | DVHHP2 ---
History of Present Illness Reason for Visit: Palpitations History of Present Illness The patient is a 64-year-old male with multiple past medical history including AFib, CHF, and hypertension who presented to [facility] ED with complaint of palpitations. Patient's family reports it was unresponsive, very weak so EMS were called. When EMS arrived on the scene, patient was in AFib, alert, and follow commands. Patient was seen and evaluated in the ED, laboratory data shows WBC 13.6, platelets 222, sodium 138, potassium 2.7, BUN 8, creatinine 1.08, glucose 97, calcium 6.1, lipase 26, total bilirubin 1.1, alkaline phos 128, troponin 11, lactic acid 3.6 trending down to 1.8, AST 60, ALT 20, BNP 1 86.91, blood pressure 138/82, heart rate 147 trending down to 110, temperature 98.2 F, O2 saturation 97% on room air. Chest x-ray showed no acute disease. Please see medication orders section in the computer. On my assessment, patient denied chest pain, no headache, no dizziness, currently on oxygen, no diaphoresis, no diarrhea, no nausea, no vomiting, no fever, no chills. Patient was admitted for further evaluation and medical management. Past Medical History AFIB, CHF, Gallstones, GERD, High Lipids, HTN Past Surgical History Cholecystectomy Family History Reviewed, noncontributory to the management of this case. Past Social History The patient lives at home, smokes cigarettes, drinks alcohol occasionally, denies illicit drugs abuse. Review of Systems Constitutional: Yes: Weakness; No: Fever, Chills, Sweats, Malaise, Other Eyes: No: Pain, Vision change, Conjunctivae inflammation, Eyelid inflammation, Other, Redness ENT: No: Ear pain, Ear discharge, Nose pain, Nose discharge, Nose congestion, Mouth pain, Mouth swelling, Throat pain, Throat swelling, Other Respiratory: No: Cough, Dry, Shortness of breath, SOB with excertion, Wheezing, Hemoptysis, Pleuritic Pain, Sputum, Wheezing, Other Cardiovascular: No: Chest Pain, Palpitations, Orthopnea, Paroxysmal Noc. Dyspnea, Edema, Lt Headedness, Other Gastrointestinal: No: Nausea, Vomiting, Abdominal Pain, Diarrhea, Constipation, Melena, Hematochezia, Other Genitourinary: No Dysuria, No Frequency, No Incontinence, No Hematuria, No Retention, No Other Musculoskeletal: No: other, neck pain, shoulder pain, arm pain, back pain, hand pain, leg pain, foot pain Skin: No: Rash, Lesions, Jaundice, Bruising, Other Neurological: Other (Dizziness, fainting.); No: Weakness, Numbness, Incoordination, Change in speech, Confusion, Seizures Allergies: Coded Allergies: NO KNOWN ALLERGIES (Unverified , 01/12/15) Medications Current Medications Medications Dose Ordered Sig/Lexis Route Start Time Stop Time Status Last Admin Dose Admin Amiodarone HCL/ Dextrose 200 ml @ 16.66 mls/ hr Q12H IV 03/25/25 23:45 Potassium Chloride 100 ml @ 50 mls/hr Q2H IV 03/25/25 20:30 03/26/25 02:29 03/25/25 20:30 50 MLS/HR Exam Vital Signs Vital Signs Date Time Temp Pulse Resp B/P (MAP) Pulse Ox O2 Delivery O2 Flow Rate FiO2 03/25/25 20:00 122 03/25/25 18:17 138/82 03/25/25 18:00 16 97 03/25/25 17:19 98.2 98.2 03/25/25 16:14 Nasal Cannula* 2 28 General Appearance: Alert, Oriented X3, Cooperative, No acute distress HEENT: Atraumatic, PERRLA, EOMI, Mucous membr. moist/pink Respiratory: Normal air movement Cardiovascular: Normal S1, Normal S2, No murmurs, Other (Irregular rate tachycardia) Abdominal: Normal bowel sounds, Soft, No tenderness, No hepatospenomegaly, No masses Extremities: No clubbing, No cyanosis, No edema, Normal pulses, No tenderness/swelling Skin: No rashes, No significant lesion Neuro: Normal speech, Normal tone, Sensation intact, Cranial nerves 3-12 NL, Reflexes 2+, Other (Generalized weakness) Psych/Mental Status: Mental status NL, Mood NL Labs/Xrays Labs Test 03/25/25 19:41 03/25/25 18:51 03/25/25 16:45 03/25/25 16:00 Range/Units Urine Color Yellow Yellow Urine Clarity Clear Clear Urine pH 6.0 5.0-9.0 Urine Specific [place] 1.030 1.001-1.035 Urine Protein 1+ H Negative Urine Ketones Negative Negative Urine Blood Negative Negative /uL Urine Nitrite Negative Negative Urine Bilirubin 1+ Negative Urine Urobilinogen 4 H Negative mg/dL Urine Leukocyte Esterase Negative Negative /uL Urine RBC 1 0 - 3 /hpf Urine Microscopic WBC 2 0-3 /HPF Urine Squamous Epithelial Cells Few <5 /hpf Urine Bacteria None seen None Seen /hpf Urine Hyaline Casts Mod 0 - 2 /lpf Urine Mucus Few None Seen Urine Glucose Normal Normal mg/dL Lactic Acid Level 1.8 0.4-2.0 mmol/L Troponin I High Sensitivity 11 </=54 ng/L POC Glucose 122 H 70-106 mg/dl White Blood Count 13.6 H 4.4-10.8 10^3/uL Red Blood Count 4.12 L 4.5-5.90 10^6/uL Hemoglobin 13.3 L 13.5-17.5 g/dL Hematocrit 39.5 L 41.0-53.0 % Mean Corpuscular Volume 95.8 80.0-100.0 fL Mean Corpuscular Hemoglobin 32.3 H 28.0-32.0 pg Mean Corpuscular Hemoglobin Concent 33.7 32.0-36.0 g/dL Red Cell Distribution Width 14.3 11.8-14.3 % Platelet Count 222 140-450 10^3/uL Mean Platelet Volume 8.9 6.9-10.8 fL Neutrophils (%) (Auto) 83.6 H 37.0-80.0 % Lymphocytes (%) (Auto) 10.3 10.0-50.0 % Monocytes (%) (Auto) 5.4 0.0-12.0 % Eosinophils (%) (Auto) 0.1 0.0-7.0 % Basophils (%) (Auto) 0.6 0.0-2.0 % Neutrophils # (Auto) 11.4 H 1.6-8.6 10 ^3/uL Lymphocytes # (Auto) 1.4 0.4-5.4 10 ^3/uL Monocytes # (Auto) 0.7 0-1.3 10 ^3/uL Eosinophils # (Auto) 0 0-0.8 10 ^3/uL Basophils # (Auto) 0.1 0-0.2 10 ^3/uL Nucleated Red Blood Cells 0.0 % Sodium Level 138 136-145 mmol/L Potassium Level 2.7 L 3.5-5.1 mmol/L Chloride Level 93 L 98-107 mmol/L Carbon Dioxide Level 29 20-31 mmol/L Anion Gap 16 H 5-15 Blood Urea Nitrogen 8 L 9-23 mg/dL Creatinine 1.08 0.700-1.30 mg/dL Glomerular Filtration Rate Calc 76 >90 mL/min BUN/Creatinine Ratio 7.4 L 10.0-20.0 Serum Glucose 97 74-106 mg/dL Calcium Level 6.1 L 8.7-10.4 mg/dL Total Bilirubin 1.1 H 0.2-1.0 mg/dL Aspartate Amino Transferase (AST) 61 H 13-40 U/L Alanine Aminotransferase (ALT) 20 7-40 U/L Alkaline Phosphatase 128 H 46-116 U/L B-Type Natriuretic Peptide 186.91 0-100 pg/mL Total Protein 5.8 5.7-8.2 g/dL Albumin 3.3 3.2-4.8 g/dL Lipase 26 12-53 U/L PATIENT: TYSON CARDONA ACCT: [id number] UNIT: [id number] : 1960 LOC: OVERFLOW ROOM / BED: [address] [place] [address] AGE / SEX: 64 / M ADM STATUS: ADM IN SERVICE 99 ORDERING PHYSICIAN: CATHY DUMONT DNP PROCEDURE(s): CXRP - CHEST PORTABLE REASON: CHF ORDER NUMBER(s): [id number], ACCESSION NUMBER(s): [id number] CHEST RADIOGRAPH Indication: CHF Technique: Single frontal view of the chest was obtained COMPARISON: XY CHEST PORTABLE on DOS: 04/17/24, XY CHEST PORTABLE on DOS: 04/14/24, XY CHEST PORTABLE on DOS: 01/10/24, XY CHEST XRAY 1 VIEW on DOS: 01/09/24, XY CHEST TWO VIEWS ROUTINE on DOS: 01/08/24 FINDINGS: Lines and Tubes: None Lungs: Clear Pleura: No effusion. No pneumothorax. Cardiomediastinal contours: Unremarkable Bones: Unremarkable IMPRESSION: 1. No acute disease. SEPSIS Sepsis Screen Date sepsis recognized/suspect: Mar 25, 2025 Time Sepsis recognized/suspect: 1544 Recent Procedure: No On Antibiotic Therapy: No Respiratory Rate >20: No Heart Rate >90: Yes Temp<36 C (96.8 F) or >38.3 C: No SBP <90 or MAP <65 mmHG: No New Acute Mental Status Change: No Is the patient on CPAP, BIPAP,: No Physician Orders Heplock Iv (03/25/25 ) Continuous Ekg Monitoring 08,12,16,20,00,04 (03/25/25 15:47) Amiodarone 360mg/200ml Premix (Nexterone (03/25/25 17:45) Amiodarone 360mg/200ml Premix (Nexterone (03/25/25 23:45) Potassium Chl 20meq/100ml (03/25/25 20:30) Metoprolol Tartrate Tablet (Lopressor Ta (03/25/25 22:00) Famotidine Injection (Pepcid Injection) (03/25/25 22:00) Calcium Ivpb (03/25/25 22:00) B-Type Natriuretic Peptide (03/25/25 22:00) Chest 2v With Apical (03/25/25 22:00) Apixaban (Eliquis) (03/25/25 22:00) Admit (03/25/25 22:00) Allergies (03/25/25 22:00) Code Status (03/25/25 22:00) Sodium Chloride Lock (Saline Lock Ns) (03/25/25 22:00) Oxygen Per Hour (03/25/25 22:00) Hydrocodone-Acet 5/325mg Tab ([place] 5/32 (03/25/25 22:00) Ondansetron Hcl (Zofran) (03/25/25 22:00) Docusate Sodium Capsule (Colace Capsule) (03/25/25 22:00) Fall Risk Precautions In Place QSHIFT (03/25/25 22:00) Complete Blood Count (03/26/25 04:00) Vital Signs Date Time Temp Pulse Resp B/P (MAP) Pulse Ox O2 Delivery O2 Flow Rate FiO2 03/25/25 20:00 122 03/25/25 19:28 121 03/25/25 18:17 122 138/82 03/25/25 18:00 123 16 111/86 (94) 97 03/25/25 17:35 125 03/25/25 17:34 124 138/85 03/25/25 17:19 98.2 140 20 108/66 97 98.2 03/25/25 17:17 132 136/85 03/25/25 17:01 125 03/25/25 17:00 132 16 139/82 (101) 97 03/25/25 16:34 145 129/92 03/25/25 16:14 97 Nasal Cannula* 2 28 03/25/25 16:09 136 18 97 Room Air* 0 21 03/25/25 16:07 98.9 141 16 129/92 (104) 97 98.9 03/25/25 15:45 147 Laboratory Tests Test 03/25/25 16:00 03/25/25 18:51 Lactic Acid Level 3.6 mmol/L (0.4-2.0) *H 1.8 mmol/L (0.4-2.0) White Blood Count 13.6 10^3/uL (4.4-10.8) H Medications Medications Dose Ordered Sig/Lexis Route Start Time Stop Time Status Last Admin Dose Admin Amiodarone HCl 100 ml @ 600 mls/hr ONCE ONCE IV 03/25/25 17:30 03/25/25 17:39 DC 03/25/25 17:41 600 MLS/HR Amiodarone HCL/ Dextrose 200 ml @ 33.33 mls/ hr ONCE ONCE IV 03/25/25 17:45 03/25/25 23:45 03/25/25 18:02 33.33 MLS/HR Aspirin 325 mg ONCE ONCE PO 03/25/25 16:00 03/25/25 16:01 DC 03/25/25 16:33 325 MG Calcium Gluconate/ Sodium Chloride 50 ml @ 100 mls/hr Q30M IV 03/25/25 20:30 03/25/25 21:29 DC 03/25/25 20:30 100 MLS/HR Metoprolol Tartrate 5 mg ONCE ONCE IV 03/25/25 16:00 03/25/25 16:01 DC 03/25/25 16:34 5 MG Metoprolol Tartrate 5 mg ONCE ONCE IV 03/25/25 17:00 03/25/25 17:01 DC 03/25/25 17:17 5 MG Ondansetron HCl 4 mg ONCE ONCE IV 03/25/25 18:00 03/25/25 18:01 DC 03/25/25 18:01 4 MG Potassium Bicarbonate 25 meq ONCE ONCE PO 03/25/25 20:30 03/25/25 20:31 DC 03/25/25 20:33 25 MEQ Potassium Chloride 100 ml @ 50 mls/hr Q2H IV 03/25/25 20:30 03/26/25 02:29 03/25/25 20:30 50 MLS/HR Assessment/Plan Assessment/Plan Atrial fibrillation Hypocalcemia Hypokalemia Leukocytosis, unspecified Elevated alkaline phosphatase level Generalized weakness Plan 1. Admit to telemetry unit 2. Breathing treatment 3. Pain control management 4. IV antibiotic management 5. Management of fluids and electrolytes 6. Consultation for Cardiology 7. Diagnostic test chest x-ray 8. DVT prophylaxis-on Eliquis 9. Repeat labs CBC, CMP in a.m. 10. Home medication reviewed and reconciled 11. Continue with current medical management 12. Treatment plan discussed with patient and RN. Patient verbalized understanding. Plan discussed with: Patient, Other (RN) My Orders Orders - CATHY DUMONT DNP Procedure Category Date Status Time Metoprolol Tartrate PHA 03/25/25 Verified Tablet (Lopressor Ta 22:00 Famotidine Injection PHA 03/25/25 Verified (Pepcid Injection) 22:00 Calcium Ivpb PHA 03/25/25 Verified 22:00 B-Type Natriuretic LAB 03/25/25 Verified Peptide 22:00 Chest 2v With Apical XY 03/25/25 Verified 22:00 Apixaban (Eliquis) PHA 03/25/25 Verified 22:00 Admit ADMIT 03/25/25 Verified 22:00 Allergies WEN 03/25/25 Verified 22:00 Code Status CODE 03/25/25 Verified 22:00 Sodium Chloride Lock PHA 03/25/25 Verified (Saline Lock Ns) 22:00 Oxygen Per Hour RT 03/25/25 Verified 22:00 Hydrocodone-Acet PHA 03/25/25 Verified 5/325mg Tab ([place] 22:00 Ondansetron Hcl PHA 03/25/25 Verified (Zofran) 22:00 Docusate Sodium PHA 03/25/25 Verified Capsule (Colace 22:00 Fall Risk Precautions WEN 03/25/[address] 22:00 Complete Blood Count LAB 03/26/25 Verified 04:00 Problem List: (1) Atrial fibrillation (2) Hypokalemia (3) Hypocalcemia (4) Leukocytosis, unspecified (5) Elevated alkaline phosphatase level (6) Generalized weakness Date of Service: Mar 25, 2025 Billing Provider: CATHY DUMONT DNP Common Visit Codes: [id number] INP/OBS CARE (HIGH) CATHY DUMONT DNP Mar 25, 2025 22:13
--- NOTE | 2025-03-25 22:56 | DVH ---
CHEST RADIOGRAPH Indication: CHF Technique: Single frontal view of the chest was obtained COMPARISON: XY CHEST PORTABLE on DOS: 04/17/24, XY CHEST PORTABLE on DOS: 04/14/24, XY CHEST PORTABLE on DOS: 01/10/24, XY CHEST XRAY 1 VIEW on DOS: 01/09/24, XY CHEST TWO VIEWS ROUTINE on DOS: 01/08/24 FINDINGS: Lines and Tubes: None Lungs: Clear Pleura: No effusion. No pneumothorax. Cardiomediastinal contours: Unremarkable Bones: Unremarkable IMPRESSION: 1. No acute disease.
[2025-03-25] MEDS: AMIODARONE 360mg/200mL PREMIX 200 ML IV SCH (23:40)
[2025-03-25] MEDS: FAMOTIDINE (10MG/ML) 2ML VL IV SCH (23:40)
[2025-03-25] MEDS: METOPROLOL TARTRATE 50 MG TAB PO SCH (23:41)
[2025-03-25] MEDS ORDERED: AMIODARONE 360mg/200mL PREMIX 200 ML IV SCH (23:45)
[2025-03-25] MEDS: CALCIUM GLUC 1,000mg/50ml-NS 50 ML IV ONE (23:54)
[2025-03-26 01:04] VITALS: BP 107/72; PULSE 130; RESP 18; O2SAT 98
[2025-03-26] MEDS: ONDANSETRON HCL 4 MG/2 ML VIAL IV PRN (01:42)
[2025-03-26 07:15] VITALS: PULSE 102; RESP 25; O2SAT 95
[2025-03-26 09:37] LABS: Hematocrit 36.3 % (41.0-53.0); Hemoglobin 12.1 g/dL (13.5-17.5); Mean Corpuscular Hemoglobin 32.7 pg (28.0-32.0); Mean Corpuscular Volume 98.0 fL (80.0-100.0); Nucleated Red Blood Cells % 0.1 %
[2025-03-26 09:53] LABS: Alanine Aminotransferase 16 U/L (7-40); Alkaline Phosphatase 108 U/L (46-116); Anion Gap 13 (5-15); BUN/Creatinine Ratio 5.1 (10.0-20.0); Bilirubin, Total 0.5 mg/dL (0.2-1.0); Blood Urea Nitrogen 6 mg/dL (9-23); Calcium 6.1 mg/dL (8.7-10.4); Carbon Dioxide 26 mmol/L (20-31); Chloride 98 mmol/L (98-107); Glucose 103 mg/dL (74-106); Potassium 2.8 mmol/L (3.5-5.1); Sodium 137 mmol/L (136-145); Total Protein 5.9 g/dL (5.7-8.2)
[2025-03-26 09:54] LABS: Albumin 3.2 g/dL (3.2-4.8)
[2025-03-26] MEDS: APIXABAN 5 MG TAB PO SCH (10:20)
--- NOTE | 2025-03-26 13:05 | DVHPN2 ---
Subjective Patient denies any symptoms at this time. Reviewed: Care Plan, H&P, Labs, Medications Changes from previous H/P or p: No Changes General: Per HPI Eyes: No Pain, No Vision change, No Conjunctivae inflammation, No Eyelid inflammation, No Other, No Redness ENT: No Ear pain, No Ear discharge, No Nose pain, No Nose discharge, No Nose congestion, No Mouth pain, No Mouth swelling, No Throat pain, No Throat swelling, No Other Cardiovascular: No Chest Pain, No Palpitations, No Orthopnea, No Paroxysmal Noc. Dyspnea, No Edema, No Lt Headedness, No Other Respiratory: No Cough, No Dry, No Shortness of breath, No SOB with excertion, No Wheezing, No Hemoptysis, No Pleuritic Pain, No Sputum, No Other Gastrointestinal: No Nausea, No Vomiting, No Abdominal Pain, No Diarrhea, No Constipation, No Melena, No Hematochezia, No Other Genitourinary: No Dysuria, No Frequency, No Incontinence, No Hematuria, No Retention, No Other Musculoskeletal: No other, No neck pain, No shoulder pain, No arm pain, No back pain, No hand pain, No leg pain, No foot pain Skin: No Rash, No Lesions, No Jaundice, No Bruising, No Other Objective Vitals Vital Signs Date Time Temp Pulse Resp B/P (MAP) Pulse Ox O2 Delivery O2 Flow Rate FiO2 03/26/25 12:00 94 21 90/72 (78) 98 03/26/25 07:15 97.8 97.8 03/26/25 07:15 Nasal Cannula* 2 28 Intake/Output Intake and Output 03/26/25 07:00 Intake Total 100 ml Balance 100 ml Intake IV Total 100 ml General Appearance: Alert, Oriented X3, Cooperative, No acute distress HEENT: Atraumatic, PERRLA Lungs: Clear to auscultation, Normal air movement Cardiovascular: Normal S1, Normal S2, Other (AFib with controlled rate) Abdomen: Normal bowel sounds, Soft, No tenderness Musculoskeletal: Normal sensory function, Normal motor function Neuro: Normal gait, Normal speech Skin: Dry, Intact Psych/Mental Status: Mental status NL, Mood NL Medications Current Medications Medications Dose Ordered Sig/Lexis Route Start Time Stop Time Status Last Admin Dose Admin Apixaban 5 mg BID PO 03/25/25 22:15 03/26/25 10:20 5 MG Docusate Sodium 100 mg BIDPRN PRN PO 03/25/25 22:15 Metoprolol Tartrate 50 mg BID PO 03/25/25 22:00 03/26/25 10:21 50 MG Famotidine 20 mg Q12HR IV 03/25/25 22:00 03/26/25 10:20 20 MG Sodium Chloride 10 ml Q8HR IV 03/25/25 22:00 03/25/25 22:00 10 ML Ondansetron HCl 4 mg Q4HP PRN IV 03/25/25 23:45 03/26/25 01:42 4 MG Morphine Sulfate 2 mg Q30M PRN IV 03/25/25 23:45 Acetaminophen/ Hydrocodone Bitart 1 tab Q4HP PRN PO 03/25/25 23:45 Acetaminophen 650 mg Q6HP PRN PO 03/25/25 23:45 Nitroglycerin 0.4 mg Q5MINP PRN SL 03/25/25 23:45 Potassium Chloride 40 meq/ Sodium Chloride 1,020 ml @ 100 mls/hr [id number] IV 03/26/25 12:30 Amiodarone HCl 200 mg Q12HR PO 03/26/25 22:00 Laboratory Results Laboratory Tests 03/26/25 09:21 Chemistry Test 03/25/25 16:00 03/26/25 09:21 Albumin 3.3 g/dL (3.2-4.8) 3.2 g/dL (3.2-4.8) Calcium Level 6.1 mg/dL (8.7-10.4) L 6.1 mg/dL (8.7-10.4) L Total Protein 5.8 g/dL (5.7-8.2) 5.9 g/dL (5.7-8.2) Magnesium Level Pending Lipid panel Test 03/25/25 16:00 Lipase 26 U/L (12-53) Cardiac Markers Test 03/25/25 16:00 03/25/25 22:25 B-Type Natriuretic Peptide 186.91 pg/mL (0-100) 269.85 pg/mL (0-100) LFT Test 03/25/25 16:00 03/26/25 09:21 Alanine Aminotransferase (ALT) 20 U/L (7-40) 16 U/L (7-40) Alkaline Phosphatase 128 U/L (46-116) H 108 U/L (46-116) Aspartate Amino Transferase (AST) 61 U/L (13-40) H 43 U/L (13-40) H Total Bilirubin 1.1 mg/dL (0.2-1.0) H 0.5 mg/dL (0.2-1.0) Urinalysis Test 03/25/25 19:41 Urine Color Yellow (Yellow) Urine Clarity Clear (Clear) Urine pH 6.0 (5.0-9.0) Urine Specific [place] 1.030 (1.001-1.035) Urine Protein 1+ (Negative) H Urine Ketones Negative (Negative) Urine Blood Negative /uL (Negative) Urine Nitrite Negative (Negative) Urine Bilirubin 1+ (Negative) Urine Urobilinogen 4 mg/dL (Negative) H Urine Leukocyte Esterase Negative /uL (Negative) Urine RBC 1 /hpf (0 - 3) Urine Microscopic WBC 2 /HPF (0-3) Urine Squamous Epithelial Cells Few /hpf (<5) Urine Bacteria None seen /hpf (None Seen) Urine Hyaline Casts Mod /lpf (0 - 2) Urine Mucus Few (None Seen) Urine Glucose Normal mg/dL (Normal) Labs and/or images reviewed: Labs reviewed by me, Image(s) reviewed by me Assessment/Plan Assessment/Plan Impression: -probable toxic metabolic encephalopathy -AFib with RVR -ETOH use -leukocytosis, rule out sepsis Plan: -blood culture -start empiric antibiotic therapy -UDS -IV hydration with potassium replacement -stop amiodarone drip, transitioned to p.o. -continue metoprolol tartrate 50 mg twice a day -continue anticoagulation with Eliquis -repeat labs in a.m. Total time spent with patient discussing and formulating plan of care: 35 minutes. This medical document was created using an electronic medical record system with [employer] dictation system. Although this document has been carefully reviewed, there may still be some phonetic and typographical errors. These areas are purely typographical due to imperfections of the software programs, and do not reflect any compromise in the patient's medical care. Plan discussed with: Patient, Other (RN) My Orders Orders - HUNTER FERGUSON NP Procedure Category Date Status Time Magnesium LAB 03/26/25 In Process 12:28 Sod Chl 0.45% PHA 03/26/25 In Process (Sodi... W/Potassium 12:30 Drug Screen LAB 03/26/25 In Process 12:28 Basic Metabolic Panel LAB 03/27/25 Verified 04:00 Magnesium LAB 03/27/25 Verified 04:00 Amiodarone Tablet PHA 03/26/25 In Process (Cordarone Tablet) 22:00 Date of Service: Mar 26, 2025 Billing Provider: HUNTER FERGUSON NP Common Visit Codes: [id number] INP/OBS CARE(HIGH) HUNTER FERGUSON NP Mar 26, 2025 13:05
[2025-03-26 13:28] LABS: Amphetamine Screen, Urine Neg (NEGATIVE); Barbiturate Scree,Urine Neg (NEGATIVE); Benzodiazephine Screen, Urine Neg (NEGATIVE); Cannabinoid Screen, Urine Neg (NEGATIVE); Cocaine Screen, Urine Neg (NEGATIVE); Opiate Scree,Urine Neg (NEGATIVE); Phencyclidine Screen, Urine Neg (NEGATIVE)
[2025-03-26] MEDS: POTASSIUM EFFERVESENT TAB 25 MEQ PO ONE (13:49)
[2025-03-26] MEDS: POTASSIUM CHLORIDE 40 MEQ in SOD CHL 0.45% 1,000 ML IV SCH (13:49)
[2025-03-26] MEDS: MAGNESIUM SULFATE 1GM/100ML 100 ML IV SCH (15:03)
--- NOTE | 2025-03-26 16:08 | DVHSR ---
APPROVED REPORT EXAM: Two-dimensional and M-mode echocardiogram with Doppler and color Doppler. Blood Pressure: 110/76 mmHg INDICATION History of CHF RISK FACTORS Height: 5' 11", Weight: 195 DIMENSIONS LVDd5.7 (3.8-5.7cm)LA (2D)4.5 (1.9-4.0cm)Aortic Root3.5 (2.0-3.7cm) LVDs4.9 (2.5-4.0cm)LA (MM) (1.9-4.0cm)Aortic Cusp Exc1.7 (1.5-2.0cm) EF (%) 27.0 (55-70%)Rt. Atrium5.2 (1.9-4.0cm)Asc. Aorta cm IVSd1.0 (0.7-1.1cm)RV (D) (1.8-2.4cm) PWd1.1 (0.7-1.1cm) Mitral Valve MitralMitral Stenosis E wave1.00m/sMV Mean GR.mmHg A wave0.80m/sMV Peak GR.mmHg E/A ratio1.32D MVAcm2 Aortic Valve Aortic ValveAortic Stenosis V10.40m/Araseli Mean GR.1mmHg V20.60m/Araseli Peak GR.2mmHg LVOT Diameter2.2 (1.8-2.4cm)Doppler AVA2.53cm2 Pulmonic Valve V20.40m/s Tricuspid Valve TR Velocity2.30m/s [id number] Conclusion REMARKABLY HYPOKINETIC ALL CARDIAC CHAMBERS MODERATELY DILATED ALL CARDIAC CHAMBERS LV EF IS ONLY 20% SEVERE MITRAL REGURGITATION NORMAL VALVES NO EFFUSION
[2025-03-26 20:00] VITALS: PULSE 80; PULSE 97; RESP 20; O2SAT 97
[2025-03-26 21:00] VITALS: BP 127/92; PULSE 77; RESP 18; TEMP 97.3; O2SAT 96
[2025-03-26] MEDS: AMIODARONE HCL 200 MG TAB PO SCH (22:28)
[2025-03-27 01:00] VITALS: BP 103/73; PULSE 70; RESP 18; TEMP 97.2; O2SAT 98
[2025-03-27 05:00] VITALS: BP 145/77; PULSE 68; RESP 18; TEMP 98.8; O2SAT 94
[2025-03-27 08:00] VITALS: RESP 20; O2SAT 99
[2025-03-27 08:15] LABS: Potassium 4.4 mmol/L (3.5-5.1); Sodium 137 mmol/L (136-145)
[2025-03-27 08:16] LABS: Anion Gap 13 (5-15); Carbon Dioxide 26 mmol/L (20-31)
[2025-03-27 08:21] LABS: BUN/Creatinine Ratio 6.1 (10.0-20.0); Glucose 89 mg/dL (74-106)
[2025-03-27 08:22] LABS: Blood Urea Nitrogen 8 mg/dL (9-23); Chloride 98 mmol/L (98-107)
[2025-03-27 08:23] LABS: Calcium 6.6 mg/dL (8.7-10.4); Magnesium 1.5 mg/dL (1.6-2.6)
[2025-03-27 09:00] VITALS: BP 122/92; PULSE 73; RESP 16; TEMP 97.7; O2SAT 97
[2025-03-27 13:00] VITALS: BP 101/80; PULSE 103; RESP 21; TEMP 98.6; O2SAT 98
--- NOTE | 2025-03-27 13:52 | DVHPN2 ---
Subjective Patient denies any symptoms at this time. Reviewed: Care Plan, H&P, Labs, Medications Changes from previous H/P or p: No Changes General: Per HPI Eyes: No Pain, No Vision change, No Conjunctivae inflammation, No Eyelid inflammation, No Other, No Redness ENT: No Ear pain, No Ear discharge, No Nose pain, No Nose discharge, No Nose congestion, No Mouth pain, No Mouth swelling, No Throat pain, No Throat swelling, No Other Cardiovascular: No Chest Pain, No Palpitations, No Orthopnea, No Paroxysmal Noc. Dyspnea, No Edema, No Lt Headedness, No Other Respiratory: No Cough, No Dry, No Shortness of breath, No SOB with excertion, No Wheezing, No Hemoptysis, No Pleuritic Pain, No Sputum, No Other Gastrointestinal: No Nausea, No Vomiting, No Abdominal Pain, No Diarrhea, No Constipation, No Melena, No Hematochezia, No Other Genitourinary: No Dysuria, No Frequency, No Incontinence, No Hematuria, No Retention, No Other Musculoskeletal: No other, No neck pain, No shoulder pain, No arm pain, No back pain, No hand pain, No leg pain, No foot pain Skin: No Rash, No Lesions, No Jaundice, No Bruising, No Other Objective Vitals Vital Signs Date Time Temp Pulse Resp B/P (MAP) Pulse Ox O2 Delivery O2 Flow Rate FiO2 03/27/25 09:00 97.7 73 16 122/92 (102) 97 97.7 03/26/25 20:00 Nasal Cannula* 2 28 Intake/Output Intake and Output 03/27/25 07:00 Intake Total 708.57 ml Output Total 100 ml Balance 608.57 ml Intake Oral 115 ml IV Total 593.57 ml Output Urine Total 100 ml # Voids 1 General Appearance: Alert, Oriented X3, Cooperative, No acute distress HEENT: Atraumatic, PERRLA Lungs: Clear to auscultation, Normal air movement Cardiovascular: Normal S1, Normal S2, Other (AFib with controlled rate) Abdomen: Normal bowel sounds, Soft, No tenderness Musculoskeletal: Normal sensory function, Normal motor function Neuro: Normal gait, Normal speech Skin: Dry, Intact Psych/Mental Status: Mental status NL, Mood NL Medications Current Medications Medications Dose Ordered Sig/Lexis Route Start Time Stop Time Status Last Admin Dose Admin Apixaban 5 mg BID PO 03/25/25 22:15 03/27/25 11:35 5 MG Docusate Sodium 100 mg BIDPRN PRN PO 03/25/25 22:15 Metoprolol Tartrate 50 mg BID PO 03/25/25 22:00 03/26/25 22:27 50 MG Famotidine 20 mg Q12HR IV 03/25/25 22:00 03/27/25 11:35 20 MG Sodium Chloride 10 ml Q8HR IV 03/25/25 22:00 03/27/25 05:29 10 ML Ondansetron HCl 4 mg Q4HP PRN IV 03/25/25 23:45 03/26/25 14:00 4 MG Morphine Sulfate 2 mg Q30M PRN IV 03/25/25 23:45 Acetaminophen/ Hydrocodone Bitart 1 tab Q4HP PRN PO 03/25/25 23:45 Acetaminophen 650 mg Q6HP PRN PO 03/25/25 23:45 Nitroglycerin 0.4 mg Q5MINP PRN SL 03/25/25 23:45 Amiodarone HCl 200 mg Q12HR PO 03/26/25 22:00 03/27/25 11:35 200 MG Magnesium Sulfate/ Dextrose 100 ml @ 100 mls/hr Q1HR IV 03/27/25 13:00 03/27/25 14:59 Laboratory Results Laboratory Tests 03/26/25 09:21 03/27/25 07:03 Chemistry Test 03/27/25 07:03 Calcium Level 6.6 mg/dL (8.7-10.4) L Magnesium Level 1.5 mg/dL (1.6-2.6) L Urinalysis Test 03/25/25 19:41 Urine Color Yellow (Yellow) Urine Clarity Clear (Clear) Urine pH 6.0 (5.0-9.0) Urine Specific [place] 1.030 (1.001-1.035) Urine Protein 1+ (Negative) H Urine Ketones Negative (Negative) Urine Blood Negative /uL (Negative) Urine Nitrite Negative (Negative) Urine Bilirubin 1+ (Negative) Urine Urobilinogen 4 mg/dL (Negative) H Urine Leukocyte Esterase Negative /uL (Negative) Urine RBC 1 /hpf (0 - 3) Urine Microscopic WBC 2 /HPF (0-3) Urine Squamous Epithelial Cells Few /hpf (<5) Urine Bacteria None seen /hpf (None Seen) Urine Hyaline Casts Mod /lpf (0 - 2) Urine Mucus Few (None Seen) Urine Glucose Normal mg/dL (Normal) Labs and/or images reviewed: Labs reviewed by me, Image(s) reviewed by me Assessment/Plan Assessment/Plan Impression: -probable toxic metabolic encephalopathy -AFib with RVR -ETOH use -leukocytosis, rule out sepsis Plan: -patient's electrolytes improving. Discussed findings of echocardiogram which revealed ejection fraction of 20%. Given the significant drop from one year ago for which his ejection fraction was 60%, cardiology consultation will be placed. Hemodynamically, patient is stable to transfer to [facility]. This was discussed with the patient who is uncertain if he agrees to transfer at this time. -IV hydration with potassium replacement -continue beta dom and amiodarone for rate control -cardiology consultation -guideline directed medical therapy we will be titrated up -magnesium replacement -continue anticoagulation with Eliquis -repeat labs in a.m. Total time spent with patient discussing and formulating plan of care: 35 minutes. This medical document was created using an electronic medical record system with [employer] dictation system. Although this document has been carefully reviewed, there may still be some phonetic and typographical errors. These areas are purely typographical due to imperfections of the software programs, and do not reflect any compromise in the patient's medical care. Plan discussed with: Patient, Other (RN) My Orders Orders - HUNTER FERGUSON NP Procedure Category Date Status Time * Radar Tester CONS 03/27/25 Transmitted Consult Magnesium Sulfate PHA 03/27/25 In Process 1gm/100ml 13:00 * Cardiology Consult CONS 03/27/25 Transmitted 12:39 Date of Service: Mar 27, 2025 Billing Provider: HUNTER FERGUSON NP Common Visit Codes: [id number] INP/OBS CARE(HIGH) HUNTER FERGUSON NP Mar 27, 2025 13:52
[2025-03-27] MEDS: MAGNESIUM SULFATE 1GM/100ML 100 ML IV SCH (14:00)
--- NOTE | 2025-03-27 14:08 | DVHINCON2 ---
Date Seen: Mar 27, 2025 Referring Physician JESSICA Moreno Reason for Consultation New onset of systolic heart failure History of Present Illness This is a 64-year-old male patient who presents to emergency room with chief complaint of shortness of breath. Cardiology has been consulted at this time for new onset systolic heart failure. Initial twelve lead electrocardiogram reveals atrial fibrillation with rapid ventricular response and underlying right bundle branch block. Serial troponin levels have been negative. The patient is a very poor historian. Significant past medical history includes atrial fibrillation with history of direct current cardioversion (on amiodarone Pradaxa), hypertension, dyslipidemia, thyroid disease, tobacco use, alcohol abuse, and obesity. The patient states that he does not regularly follow up with a line manager in the outpatient setting. Of note, the patient underwent a coronary angiogram with left heart catheterization at this facility on 05/27/2023 which revealed borderline nonobstructive coronary disease. At that time medical therapy was recommended. Past Medical History Past medical history reviewed. No other significant than mentioned above. Past Surgical History Cholecystectomy Right ankle repair Family History: Cardiac disorder in father G8 FATHER Diabetes mellitus G8 MOTHER FH: Parkinson's disease G8 BROTHER FH: bladder cancer G8 MOTHER Family History Family history reviewed. Social History Patient has a 20 pack-year history, smokes half a pack per day Patient admits to drinking bourbon, approximately seven drinks per week Denies illicit drug use Allergies: Coded Allergies: NO KNOWN ALLERGIES (Unverified , 01/12/15) Home Meds Active Scripts Magnesium Oxide (MAGNESIUM OXIDE) 400 Mg Tab, 1 TAB PO DAILY, #30 TAB 2 Refills Prov:AB ALVAREZ RESIDENT 04/18/24 Apixaban Base (ELIQUIS) 5 Mg Tab, 5 MG PO BID for 30 Days, #60 TAB 2 Refills Prov:AB ALVAREZ RESIDENT 04/18/24 Spironolactone (Aldactone) 25 Mg Tab, 100 MG PO DAILY for 30 Days, #120 TAB Prov:AB ALVAREZ [facility] 04/18/24 Potassium Chloride (Klor-Con M20) 20 Meq Tab, 20 MEQ PO DAILY for 30 Days, #30 TAB 2 Refills Prov:AB ALVAREZ [facility] 04/18/24 Multiple Vitamin (Mvi Tab) 1 Tab Tb, 1 TAB PO DAILY for 30 Days, #30 TAB 2 Refills Prov:AB ALVAREZ RESIDENT 04/18/24 Folic Acid (Folic Acid) 1 Mg Tab, 1 MG PO DAILY for 30 Days, #30 TAB 2 Refills Prov:AB ALVAREZ RESIDENT 04/18/24 Ergocalciferol (VITAMIN D 20307 UNIT) 50,000 [place], [address] UNIT PO Q7D for 90 Days, #12 CAP Prov:AB ALVAREZ 04/18/24 Amiodarone HCl (Amiodarone HCl) 200 Mg Tab, 200 MG PO Q12HR for 30 Days, #60 TAB Prov:AB ALVAREZ RESIDENT 04/18/24 Reported Medications Baclofen (Baclofen) 10 Mg Tab, 1 TAB PO TID 01/04/24 Metoprolol Tartrate (Lopressor) 50 Mg Tab, 1 TAB PO BID 01/04/24 Sacubitril-Valsartan (Entresto 49-51 mg) 1 Tab Tab, 1 TAB PO BID, TAB 01/04/24 Omeprazole (Omeprazole Dr) 20 Mg Cap, 1 CAP PO DAILY 12/01/22 Home Meds Home medications reviewed. Current Medications Current Medications Medications (Trade) Dose Ordered Sig/Lexis Route PRN Reason Start Time Stop Time Status Last Admin Amiodarone HCl (Cordarone Tablet) 200 mg Q12HR PO 03/26/25 22:00 03/27/25 11:35 Magnesium Sulfate/ Dextrose 100 ml @ 100 mls/hr Q1HR IV 03/26/25 15:00 03/26/25 17:59 DC 03/26/25 17:12 Magnesium Sulfate/ Dextrose 100 ml @ 100 mls/hr Q1HR IV 03/27/25 13:00 03/27/25 14:59 Review of Systems Constitutional: No symptom reported Ears, Nose, & Throat: No symptom reported Eyes: No symptom reported Neurological: No symptoms reported Pulmonary/Respiratory: Shortness of breath Cardiovascular: No symptom reported Gastrointestinal: No symptom reported Genitourinary: No symptom reported Musculoskeletal: No symptom reported Skin: No symptom reported Psychiatric: No symptom reported Endocrine: No symptom reported Hematologic/Lymphatic: No symptom reported Vital Signs Vital Signs Date Time Temp Pulse Resp B/P (MAP) Pulse Ox O2 Delivery O2 Flow Rate FiO2 03/27/25 09:00 97.7 73 16 122/92 (102) 97 97.7 03/26/25 20:00 Nasal Cannula* 2 28 Physical Exam General Appearance: Cooperative. Morbidly obese Pulmonary/Respiratory: Clear, bilateral breaths sounds. Cardiovascular/Chest: Irregularly irregular rate and rhythm Peripheral Pulses: 2+ Radial (R). 2+ Radial (L). 2+ Pedal (R). 2+ Pedal (L) Abdominal Exam: Normal bowel sounds. Large, distended abdomen Ankle Exam: Nonpitting bilateral ankle edema Lower extremities: Negative lower extremity edema Neuro/Mental Status: A/OX4, coherent. Thoughts/Psych: Normal thought pattern. Appropriate mood and affect. Good judgment and insight. Appearance: No acute distress. Skin Exam: Normal inspection. Normal color. Warm and dry. Labs/Diagnostic Data Labs Test 03/27/25 07:03 03/26/25 09:21 03/25/25 22:25 03/25/25 19:41 Range/Units Sodium Level 137 136-145 mmol/L Potassium Level 4.4 3.5-5.1 mmol/L Chloride Level 98 98-107 mmol/L Carbon Dioxide Level 26 20-31 mmol/L Anion Gap 13 5-15 Blood Urea Nitrogen 8 L 9-23 mg/dL Creatinine 1.32 H 0.700-1.30 mg/dL Glomerular Filtration Rate Calc 59 >90 mL/min BUN/Creatinine Ratio 6.1 L 10.0-20.0 Serum Glucose 89 74-106 mg/dL Calcium Level 6.6 L 8.7-10.4 mg/dL Magnesium Level 1.5 L 1.6-2.6 mg/dL White Blood Count 12.4 H 4.4-10.8 10^3/uL Red Blood Count 3.70 L 4.5-5.90 10^6/uL Hemoglobin 12.1 L 13.5-17.5 g/dL Hematocrit 36.3 L 41.0-53.0 % Mean Corpuscular Volume 98.0 80.0-100.0 fL Mean Corpuscular Hemoglobin 32.7 H 28.0-32.0 pg Mean Corpuscular Hemoglobin Concent 33.3 32.0-36.0 g/dL Red Cell Distribution Width 14.5 H 11.8-14.3 % Platelet Count 217 140-450 10^3/uL Mean Platelet Volume 9.1 6.9-10.8 fL Neutrophils (%) (Auto) 73.2 37.0-80.0 % Lymphocytes (%) (Auto) 18.8 10.0-50.0 % Monocytes (%) (Auto) 7.2 0.0-12.0 % Eosinophils (%) (Auto) 0.2 0.0-7.0 % Basophils (%) (Auto) 0.6 0.0-2.0 % Neutrophils # (Auto) 9.1 H 1.6-8.6 10 ^3/uL Lymphocytes # (Auto) 2.3 0.4-5.4 10 ^3/uL Monocytes # (Auto) 0.9 0-1.3 10 ^3/uL Eosinophils # (Auto) 0 0-0.8 10 ^3/uL Basophils # (Auto) 0.1 0-0.2 10 ^3/uL Nucleated Red Blood Cells 0.1 % Total Bilirubin 0.5 0.2-1.0 mg/dL Aspartate Amino Transferase (AST) 43 H 13-40 U/L Alanine Aminotransferase (ALT) 16 7-40 U/L Alkaline Phosphatase 108 46-116 U/L Total Protein 5.9 5.7-8.2 g/dL Albumin 3.2 3.2-4.8 g/dL B-Type Natriuretic Peptide 269.85 0-100 pg/mL Urine Color Yellow Yellow Urine Clarity Clear Clear Urine pH 6.0 5.0-9.0 Urine Specific [place] 1.030 1.001-1.035 Urine Protein 1+ H Negative Urine Ketones Negative Negative Urine Blood Negative Negative /uL Urine Nitrite Negative Negative Urine Bilirubin 1+ Negative Urine Urobilinogen 4 H Negative mg/dL Urine Leukocyte Esterase Negative Negative /uL Urine RBC 1 0 - 3 /hpf Urine Microscopic WBC 2 0-3 /HPF Urine Squamous Epithelial Cells Few <5 /hpf Urine Bacteria None seen None Seen /hpf Urine Hyaline Casts Mod 0 - 2 /lpf Urine Mucus Few None Seen Urine Glucose Normal Normal mg/dL Test 03/25/25 18:51 03/25/25 16:45 03/25/25 16:00 03/25/25 15:47 Range/Units Lactic Acid Level 1.8 0.4-2.0 mmol/L Troponin I High Sensitivity 11 </=54 ng/L POC Glucose 122 H 70-106 mg/dl Lipase 26 12-53 U/L Urine Opiates Screen Neg NEGATIVE Urine Fentanyl Screen Neg NEGATIVE Urine Barbiturates Screen Neg NEGATIVE Urine Phencyclidine Screen Neg NEGATIVE Urine Amphetamines Screen Neg NEGATIVE Urine Benzodiazepines Screen Neg NEGATIVE Urine Cocaine Screen Neg NEGATIVE Urine Cannabinoids Screen Neg NEGATIVE Assessment [place] HFrEF, NYHA class III Atrial fibrillation with a rapid ventricular response and history of direct current cardioversion (on amiodarone and Pradaxa therapy) History of nonobstructive CAD Severe mitral valve regurgitation Hypertension Dyslipidemia Severe hypomagnesemia Hypokalemia Thyroid disease Alcohol abuse Tobacco use Morbid obesity Plan/Recommendation We will continue with the following plan/recommendations (Dr. Wagner): Case discussed with . A transthoracic echocardiogram done on this admission reveals an EF of 20%. Initiate guideline directed medical therapy for CHF as tolerated by renal function and blood pressure. Switch metoprolol tartrate to metoprolol succinate as per GDMT guidelines. Of note, the patient underwent a coronary angiogram with left heart catheterization at this facility on 05/27/2023 which revealed borderline nonobstructive coronary disease. At that time medical therapy was recommended. Given significant drop in ejection fraction (was 60% in 2023, now 20%) , we will proceed with an inpatient Lexiscan. In the meantime, continue with single antiplatelet therapy and lipid- lowering agent. ?[id number] VASc score: 3 points, HAS-BLED score: 2 points. Continue home dose amiodarone, continue beta-dom, start therapeutic Lovenox while inpatient and transition to DOAC prior discharge. Monitor and replete electrolytes as needed, keep potassium greater than four and magnesium greater than two. Risk factor modifications counseled with patient regarding cessation of alcohol use as well as compliance with medications. Thank you for allowing us to care for this patient. Please call with any questions or concerns. Critical care time spent: 44 minutes This medical document was created using an electronic medical record system with voice recognition software and computerized dictation system. Although this document has been carefully reviewed, there might still be some phonetic and typographical errors. Occasional wrong-word or ``sound-alike substitutions may have occurred due to the inherent limitations of voice recognition software. These areas are purely typographical due to imperfections of the software programs and do not reflect any compromise in the patient's medical care. Please read the chart carefully and recognize, using context, where these s ubstitutions have occurred. Plan discussed with: Patient NYHA Physical activity limitations: Class3(Marked) ordinary (activity causes symtoms) Date of Service: Mar 27, 2025 Billing Provider: ANIL BOOKER Cardiology Common Codes: 89484-[id number] INP/OBS CARE (High) Cardiology Consultation Codes: [id number] CONSULT <45MIN ANIL BOOKER Mar 27, 2025 14:08
[2025-03-27 15:12] LABS: Triglycerides 155 mg/dL (< 150)
[2025-03-27 15:13] LABS: Cholesterol 115 mg/dL (< 200); HDL Cholesterol 41 mg/dL (40-59)
[2025-03-27 17:08] VITALS: BP 135/95; PULSE 84; RESP 18; TEMP 98.2; O2SAT 99
[2025-03-27] MEDS ORDERED: ENOXAPARIN SOD 100 MG/1 ML SYRINGE SC SCH (22:00)
[2025-03-27] MEDS ORDERED: SACUBITRIL-VALSARTAN 24mg/26mg TAB PO SCH (22:00)
[2025-03-28] MEDS ORDERED: METOPROLOL SUCCINATE XL 50 MG TAB PO SCH (10:00)
[2025-03-28] MEDS ORDERED: SPIRONOLACTONE 25 MG TAB PO SCH (10:00)
[2025-03-28] MEDS ORDERED: EMPAGLIFLOZIN 10 MG TAB PO SCH (10:00)
--- NOTE | 2025-03-28 10:18 | DVHDS2 ---
Discharge Summary Date of Admission Mar 25, 2025 at 22:00 Date of Discharge: Mar 27, 2025 Admitting Diagnosis Atrial fibrillation Labs/Diagnostic Data: Laboratory Results Test 03/27/25 07:03 03/26/25 09:21 03/25/25 22:25 03/25/25 19:41 Sodium Level 137 mmol/L (136-145) Potassium Level 4.4 mmol/L (3.5-5.1) Chloride Level 98 mmol/L (98-107) Carbon Dioxide Level 26 mmol/L (20-31) Anion Gap 13 (5-15) Blood Urea Nitrogen 8 mg/dL (9-23) Creatinine 1.32 mg/dL (0.700-1.30) Glomerular Filtration Rate Calc 59 mL/min (>90) BUN/Creatinine Ratio 6.1 (10.0-20.0) Serum Glucose 89 mg/dL (74-106) Hemoglobin A1c 5.0 % A1C (<5.7) Calcium Level 6.6 mg/dL (8.7-10.4) Magnesium Level 1.5 mg/dL (1.6-2.6) Triglycerides Level 155 mg/dL (< 150) Cholesterol Level 115 mg/dL (< 200) LDL Cholesterol 55 mg/dL (< 100) HDL Cholesterol 41 mg/dL (40-59) Thyroid Stimulating Hormone (TSH) 5.24 uIU/mL (0.55-4.78) White Blood Count 12.4 10^3/uL (4.4-10.8) Red Blood Count 3.70 10^6/uL (4.5-5.90) Hemoglobin 12.1 g/dL (13.5-17.5) Hematocrit 36.3 % (41.0-53.0) Mean Corpuscular Volume 98.0 fL (80.0-100.0) Mean Corpuscular Hemoglobin 32.7 pg (28.0-32.0) Mean Corpuscular Hemoglobin Concent 33.3 g/dL (32.0-36.0) Red Cell Distribution Width 14.5 % (11.8-14.3) Platelet Count 217 10^3/uL (140-450) Mean Platelet Volume 9.1 fL (6.9-10.8) Neutrophils (%) (Auto) 73.2 % (37.0-80.0) Lymphocytes (%) (Auto) 18.8 % (10.0-50.0) Monocytes (%) (Auto) 7.2 % (0.0-12.0) Eosinophils (%) (Auto) 0.2 % (0.0-7.0) Basophils (%) (Auto) 0.6 % (0.0-2.0) Neutrophils # (Auto) 9.1 10 ^3/uL (1.6-8.6) Lymphocytes # (Auto) 2.3 10 ^3/uL (0.4-5.4) Monocytes # (Auto) 0.9 10 ^3/uL (0-1.3) Eosinophils # (Auto) 0 10 ^3/uL (0-0.8) Basophils # (Auto) 0.1 10 ^3/uL (0-0.2) Nucleated Red Blood Cells 0.1 % Total Bilirubin 0.5 mg/dL (0.2-1.0) Aspartate Amino Transferase (AST) 43 U/L (13-40) Alanine Aminotransferase (ALT) 16 U/L (7-40) Alkaline Phosphatase 108 U/L (46-116) Total Protein 5.9 g/dL (5.7-8.2) Albumin 3.2 g/dL (3.2-4.8) B-Type Natriuretic Peptide 269.85 pg/mL (0-100) Urine Color Yellow (Yellow) Urine Clarity Clear (Clear) Urine pH 6.0 (5.0-9.0) Urine Specific [place] 1.030 (1.001-1.035) Urine Protein 1+ (Negative) Urine Ketones Negative (Negative) Urine Blood Negative /uL (Negative) Urine Nitrite Negative (Negative) Urine Bilirubin 1+ (Negative) Urine Urobilinogen 4 mg/dL (Negative) Urine Leukocyte Esterase Negative /uL (Negative) Urine RBC 1 /hpf (0 - 3) Urine Microscopic WBC 2 /HPF (0-3) Urine Squamous Epithelial Cells Few /hpf (<5) Urine Bacteria None seen /hpf (None Seen) Urine Hyaline Casts Mod /lpf (0 - 2) Urine Mucus Few (None Seen) Urine Glucose Normal mg/dL (Normal) Test 03/25/25 18:51 03/25/25 16:45 03/25/25 16:00 03/25/25 15:47 Lactic Acid Level 1.8 mmol/L (0.4-2.0) Troponin I High Sensitivity 11 ng/L (</=54) POC Glucose 122 mg/dl (70-106) Lipase 26 U/L (12-53) Urine Opiates Screen Neg (NEGATIVE) Urine Fentanyl Screen Neg (NEGATIVE) Urine Barbiturates Screen Neg (NEGATIVE) Urine Phencyclidine Screen Neg (NEGATIVE) Urine Amphetamines Screen Neg (NEGATIVE) Urine Benzodiazepines Screen Neg (NEGATIVE) Urine Cocaine Screen Neg (NEGATIVE) Urine Cannabinoids Screen Neg (NEGATIVE) Other Laboratory Tests 03/27/25 07:03 03/26/25 09:21 Brief Hx & Hospital Course: History of Present Illness The patient is a 64-year-old male with multiple past medical history including AFib, CHF, and hypertension who presented to [facility] ED with complaint of palpitations. Patient's family reports it was unresponsive, very weak so EMS were called. When EMS arrived on the scene, patient was in AFib, alert, and follow commands. Patient was seen and evaluated in the ED, laboratory data shows WBC 13.6, platelets 222, sodium 138, potassium 2.7, BUN 8, creatinine 1.08, glucose 97, calcium 6.1, lipase 26, total bilirubin 1.1, alkaline phos 128, troponin 11, lactic acid 3.6 trending down to 1.8, AST 60, ALT 20, BNP 186.91, blood pressure 138/82, heart rate 147 trending down to 110, temperature 98.2 F, O2 saturation 97% on room air. Chest x-ray showed no acute disease. Please see medication orders section in the computer. On my assessment, patient denied chest pain, no headache, no dizziness, currently on oxygen, no diaphoresis, no diarrhea, no nausea, no vomiting, no fever, no chills. Patient was admitted for further evaluation and medical management. Course of hospitalization: Patient was started on amiodarone drip, which was transitioned to oral amiodarone after rate control was achieved. Patient was also started on beta- dom therapy with metoprolol tartrate. Patient was noted to be severely hypokalemic as well as having decrease magnesium level, for which both repleted. Echocardiogram was performed which revealed an ejection fraction of 20%. Comparing to echocardiogram from one year ago, patient's ejection fraction has decreased from 60%. This was discussed with the patient, with the patient needing cardiology consultation for possible ischemia workup. Patient was scheduled for stress test, but prior to testing patient decided to leave against medical advice yesterday evening. Total time spent with patient discussing and formulating plan of care: 35 minutes. This medical document was created using an electronic medical record system with [employer] system. Although this document has been carefully reviewed, there may still be some phonetic and typographical errors. These areas are purely typographical due to imperfections of the software programs, and do not reflect any compromise in the patient's medical care. Consults/Reason for consult Cardiology: Acute decompensated heart failure Condition at Discharge: Undetermined Final Diagnosis/Problems List Acute decompensated systolic heart failure -probable toxic metabolic encephalopathy -AFib with RVR -ETOH use -leukocytosis, rule out sepsis Discharge Disposition: AMA Discharge Instruct/Medications Scheduled Amiodarone HCl (Amiodarone HCl), 200 MG PO Q12HR Apixaban Base (Eliquis), 5 MG PO BID Baclofen (Baclofen), 1 TAB PO TID, (Reported) Ergocalciferol (Vitamin D 51198 Unit), 50,000 UNIT PO Q7D Folic Acid (Folic Acid), 1 MG PO DAILY Magnesium Oxide (Magnesium Oxide), 1 TAB PO DAILY Metoprolol Tartrate (Lopressor), 1 TAB PO BID, (Reported) Multiple Vitamin (Mvi Tab), 1 TAB PO DAILY Omeprazole (Omeprazole Dr), 1 CAP PO DAILY, (Reported) Potassium Chloride (Klor-Con M20), 20 MEQ PO DAILY Sacubitril-Valsartan (Entresto 49-51 mg), 1 TAB PO BID, (Reported) Spironolactone (Aldactone), 100 MG PO DAILY 36 Discharge Statement: "Patient was advised to return to the ER or call 911 if any headaches, dizziness, shortness of breath, chest pain, abdominal pain, bleeding, fevers, or worsening of medical condition. Patient was counseled about treatment plan, medications, possible side effects, patientverbalized understanding. All questions were answered to the best of my ability. This discharge took greater then 30 minutes in planning, reviewing documentation, counseling the patient, and discussing with other team members." ASSESSMENT ASSESSMENT Assessment Date of Service: Mar 28, 2025 Billing Provider: SALBINO,HARRISON WORLD GEOGR[employer] TEACHER Common Visit Codes: 01816-IYD/OBS DISCH DAY >30min HUNTER FERGUSON WORLD GEOGRAPHY TEACHER Mar 28, 2025 10:18
== END 2025-03-27 19:58 | disposition left against medical advice (07) | DRG 291 ==
LOC: ER 15:40 → EDBD 15:40 → OVERFLOW 22:00 → ER 22:14 → TELE-WESTW 03-26 17:38
PROVIDERS: ADMIT Nurse Practitioner Acute Care; ATTEND Nurse Practitioner Acute Care
DX: I11.0 Hypertensive heart disease with heart failure (principal); G92.8 Other toxic encephalopathy; I50.23 Acute on chronic systolic (congestive) heart failure; R65.10 Systemic inflammatory response syndrome (SIRS) of non-infectious origin without acute organ dysfunction; I48.91 Unspecified atrial fibrillation; E87.6 Hypokalemia; Z53.29 Procedure and treatment not carried out because of patient's decision for other reasons; E83.51 Hypocalcemia; F17.210 Nicotine dependence, cigarettes, uncomplicated; K21.9 Gastro-esophageal reflux disease without esophagitis; E83.42 Hypomagnesemia; I25.10 Atherosclerotic heart disease of native coronary artery without angina pectoris; E78.5 Hyperlipidemia, unspecified; E66.01 Morbid (severe) obesity due to excess calories; I45.10 Unspecified right bundle-branch block; F10.10 Alcohol abuse, uncomplicated; E07.9 Disorder of thyroid, unspecified; I34.0 Nonrheumatic mitral (valve) insufficiency; Z68.27 Body mass index [BMI] 27.0-27.9, adult; Z79.01 Long term (current) use of anticoagulants; Z79.899 Other long term (current) drug therapy; Z90.49 Acquired absence of other specified parts of digestive tract; Z83.3 Family history of diabetes mellitus; Z82.49 Family history of ischemic heart disease and other diseases of the circulatory system; Z82.0 Family history of epilepsy and other diseases of the nervous system; Z80.52 Family history of malignant neoplasm of bladder; Y90.9 Presence of alcohol in blood, level not specified
CPT/HCPCS: 36415; 71045; 80048; 80053; 80061; 80307; 81001; 82962; 83036; 83605; 83690; 83735; 83880; 84443; 84484; 85025; 93005; 93306; 96365; 96367; 99291; G0378; J2405; J3480; J3490